=== PATIENT | male | born 1935 | race American Indian/Alaskan Native ===

== ENCOUNTER → 2018-01-14 14:01 | Outpatient (CLI) | payer MEDICARE, OTHER, SELFPAY ==
[2018-01-14 14:27] LABS: Add Manual Diff / Slide Review NO; Basophils Percent Auto 0.5 % (0-2); Eosinophils Percent Auto 2.6 % (2-4); Hematocrit 38.8 % (41-53); Hemoglobin 13.1 g/dL (13.5-17.5); Lymphocytes Percent Auto 21.1 % (25-40); Mean Corpuscular HGB Conc 33.7 % (30-36); Mean Corpuscular Hemoglobin 31.4 PG (26-34); Mean Corpuscular Volume 92.9 fL (80-100); Monocytes Percent Auto 11.1 % (3-14); Neutrophils Absolute Auto 3900 /uL (3000-5900); Neutrophils Percent Auto 64.7 % (50-75); Platelet Count 239 X10^3/uL (150-400); Red Blood Cell Count 4.17 X10^6/uL (4.5-5.9); Red Cell Distribution Width 14.5 % (11.6-14.8)
[2018-01-14 14:50] LABS: Alanine Aminotransferase 34 IU/L (21-72); Albumin 3.9 g/dL (3.5-5.0); Albumin Globulin Ratio 1.3 (1.0-2.8); Alkaline Phosphatase 80 U/L (38-126); Aspartate Aminotransferase 33 IU/L (17-59); Bilirubin Total 0.5 mg/dL (0.2-1.3); Blood Urea Nitrogen 24 mg/dL (9-20); Calcium 8.8 mg/dL (8.4-10.2); Carbon Dioxide 22 mmol/L (22-32); Chloride 106 mmol/L (98-107); Cholesterol 167 mg/dL (140-199); Estimated Glomerular Filt Rate 58.3 mL/min (>60); Globulin 3.1 g/dL (1.7-4.1); Glucose 125 mg/dL (80-110); HDL Cholesterol 69 mg/dL (40-60); HEMOLYSIS 15 (0-50); LDL Cholesterol Calculated 68 mg/dL (<100); Potassium 4.3 mmol/L (3.4-5.1); Sodium 140 mmol/L (137-145); Triglycerides 152 mg/dL (35-150); Uric Acid 8.1 mg/dL (3.5-8.5)
[2018-01-14 15:19] LABS: Thyroid Stimulating Hormone 1.62 uIU/mL (0.47-4.68)
== END ==
PROVIDERS: PCP Internal Medicine; Visit Provider Internal Medicine
DX: M10.9 Gout, unspecified (principal); I10 Essential (primary) hypertension; N18.3 Chronic kidney disease, stage 3 (moderate); E78.00 Pure hypercholesterolemia, unspecified
CPT/HCPCS: 36415; 80053; 80061; 84443; 84550; 85025

== ENCOUNTER → 2018-01-28 12:29 | Outpatient (CLI) | payer MEDICARE, OTHER, SELFPAY | PROVIDERS: PCP Internal Medicine; Visit Provider Urology | DX: R97.20 Elevated prostate specific antigen [PSA] (principal) | CPT/HCPCS: 36415; 84153 ==

== ENCOUNTER → 2018-09-09 10:43 | Outpatient (CLI) | payer MEDICARE, OTHER, SELFPAY ==
--- NOTE | 2018-09-09 | DI.RAD.S_ITS ---
PROCEDURE: XR HIP W PEL IF DONE LT 2V INDICATIONS: left hip pain TECHNIQUE: 3 views of the hip were acquired. COMPARISON: [facility], CR, [id number] W PEL IF PERFORMED, 12/17/2016, 13:23. [facility], CR, [id number] W PEL IF PERFORMED, 08/05/2016, 11:07. FINDINGS: Bones: No fractures or dislocations. Prior right total hip arthroplasty. Left hip degenerative osteoarthritic joint space thinning and reactive sclerosis and subchondral cyst formation has mildly worsened from the 12/17/16 comparison. No suspicious bony lesions. The visualized pelvic ring appears intact. Soft tissues: No suspicious soft tissue calcifications or masses. IMPRESSION: Mild interval worsening of previously present degenerative left hip joint osteoarthritis, now moderate to moderately severe. The right hip arthroplasty previously performed shows no sign of device loosening or disruption. Dictated by: Darwin Allen M.D. on 09/09/2018 at 11:25 Approved by: Darwin Allen M.D. on 09/09/2018 at 11:26
== END ==
PROVIDERS: PCP Internal Medicine; Visit Provider Registered Nurse
DX: M25.552 Pain in left hip (principal); M16.12 Unilateral primary osteoarthritis, left hip; Z96.641 Presence of right artificial hip joint
CPT/HCPCS: 73502

== ENCOUNTER → 2018-10-01 10:25 | Outpatient (CLI) | payer MEDICARE, OTHER, SELFPAY ==
[2018-10-01 10:40] LABS: RBC Urine None Seen (0-5/HPF)
[2018-10-01 11:12] LABS: Add Manual Diff / Slide Review NO; Basophils Absolute Auto 0 /uL (0-100); Basophils Percent Auto 0.5 % (0-2); Eosinophils Absolute Auto 200 /uL (0-450); Eosinophils Percent Auto 3.3 % (2-4); Hematocrit 40.2 % (41-53); Hemoglobin 13.4 g/dL (13.5-17.5); Lymphocytes Absolute Auto 1300 /uL (1100-4500); Lymphocytes Percent Auto 25.7 % (25-40); Mean Corpuscular HGB Conc 33.4 % (30-36); Mean Corpuscular Hemoglobin 30.9 PG (26-34); Mean Corpuscular Volume 92.4 fL (80-100); Monocytes Absolute Auto 500 /uL (0-900); Neutrophils Absolute Auto 3200 /uL (1500-7000); Neutrophils Percent Auto 60.5 % (50-75); Platelet Count 275 X10^3/uL (150-400); Red Blood Cell Count 4.35 X10^6/uL (4.5-5.9); Red Cell Distribution Width 14.6 % (11.6-14.8); White Blood Cell Count 5.2 X10^3/uL (4.5-11.0)
[2018-10-01 11:37] LABS: Hemoglobin A1C% w Est Avg Glu 5.6 % (4.0-6.0)
[2018-10-01 11:38] LABS: BUN Creatinine Ratio 19.4 (6-22); Blood Urea Nitrogen 33 mg/dL (9-20); Calcium 9.1 mg/dL (8.4-10.2); Carbon Dioxide 25 mmol/L (22-32); Chloride 104 mmol/L (98-107); Estimated Glomerular Filt Rate 38.9 mL/min (>60); Glucose 98 mg/dL (80-110); HEMOLYSIS < 15 (0-50); Potassium 4.3 mmol/L (3.4-5.1); Sodium 139 mmol/L (137-145)
[2018-10-01 12:16] LABS: Appearance Urine UA CLEAR; Bilirubin Urine UA NEGATIVE (NEGATIVE); Color Urine UA YELLOW; Glucose Urine UA NEGATIVE (Negative); Ketones Urine UA NEGATIVE (NEGATIVE); Leukocyte Esterase Urine UA TRACE (NEGATIVE); Nitrite Urine UA NEGATIVE (Negative); Occult Blood Urine UA TRACE-LYSED (Negative); Protein Urine UA 3+ (Negative); Specific Gravity Urine UA 1.025 (1.000-1.035); Urobilinogen Urine UA 0.2 E.U./dL (0.2); pH Urine UA 5.5 (4.5-8.0)
[2018-10-01 12:24] LABS: Amorphous Sediment Urine 2+; Bacteria Urine Occasional (0-1); Culture Indicated Urine Specimen Cultured; Hyaline Casts Urine 0-1/LPF; Mucus Urine 2+ (Negative); Squamous Epithelial Cell Urine 1-5 /HPF; WBC Urine 1-5/HPF (0-5/HPF)
== END ==
PROVIDERS: PCP Student in an Organized Health Care Education/Training Program; Visit Provider Orthopaedic Surgery
DX: Z01.818 Encounter for other preprocedural examination (principal); Z01.812 Encounter for preprocedural laboratory examination; N39.9 Disorder of urinary system, unspecified; R73.9 Hyperglycemia, unspecified; Z13.1 Encounter for screening for diabetes mellitus
CPT/HCPCS: 36415; 80048; 81001; 83036; 85025; 87086; 93005

== ENCOUNTER → 2018-11-04 10:20 | Outpatient (CLI) | payer MEDICARE, OTHER, SELFPAY ==
[2018-11-04 11:00] LABS: BUN Creatinine Ratio 14.7 (6-22); Blood Urea Nitrogen 25 mg/dL (9-20); Calcium 9.1 mg/dL (8.4-10.2); Carbon Dioxide 26 mmol/L (22-32); Chloride 104 mmol/L (98-107); Estimated Glomerular Filt Rate 38.9 mL/min (>60); Glucose 101 mg/dL (80-110); HEMOLYSIS < 15 (0-50); Potassium 4.7 mmol/L (3.4-5.1); Sodium 138 mmol/L (137-145)
== END ==
PROVIDERS: PCP Student in an Organized Health Care Education/Training Program; Visit Provider Registered Nurse
DX: N18.3 Chronic kidney disease, stage 3 (moderate) (principal); I12.9 Hypertensive chronic kidney disease with stage 1 through stage 4 chronic kidney disease, or unspecified chronic kidney disease
CPT/HCPCS: 36415; 80048

== ENCOUNTER → 2018-11-20 16:14 | Outpatient (CLI) | payer MEDICARE, OTHER, SELFPAY ==
[2018-11-20 16:25] LABS: RBC Urine None Seen (0-5/HPF)
[2018-11-20 16:35] LABS: Appearance Urine UA CLEAR; Bilirubin Urine UA NEGATIVE (NEGATIVE); Color Urine UA YELLOW; Glucose Urine UA NEGATIVE (Negative); Ketones Urine UA TRACE (NEGATIVE); Leukocyte Esterase Urine UA TRACE (NEGATIVE); Nitrite Urine UA NEGATIVE (Negative); Occult Blood Urine UA NEGATIVE (Negative); Protein Urine UA 3+ (Negative); Urobilinogen Urine UA 0.2 E.U./dL (0.2)
[2018-11-20 16:46] LABS: Amorphous Sediment Urine 1+; Bacteria Urine Occasional (0-1); Squamous Epithelial Cell Urine 1-5 /HPF; WBC Urine 1-5/HPF (0-5/HPF)
[2018-11-20 16:47] LABS: Culture Indicated Urine Specimen Cultured; Mucus Urine 1+ (Negative)
[2018-11-20 16:52] LABS: Hemoglobin A1C% w Est Avg Glu 5.4 % (4.0-6.0)
== END ==
PROVIDERS: PCP Student in an Organized Health Care Education/Training Program; Visit Provider Orthopaedic Surgery
DX: N39.0 Urinary tract infection, site not specified (principal); R73.9 Hyperglycemia, unspecified; Z01.818 Encounter for other preprocedural examination
CPT/HCPCS: 36415; 81001; 83036; 87086

== ENCOUNTER 2018-12-08 09:02 | Inpatient (IN) | payer MEDICARE, OTHER, SELFPAY ==
[2018-11-26 08:53] VITALS: BMI 27.6
[2018-12-08] VITALS (14 sets, daily range): BP systolic 105–163; BP diastolic 46–82; PULSE 54–73; RESP 15–20; TEMP 36.1–37.1; O2SAT 96–99; BMI 28.8
--- NOTE | 2018-12-08 | DI.RAD.S_ITS ---
PROCEDURE: XR HIP W PEL IF DONE LT 2V INDICATIONS: POST OP LEFT TOTAL HIP TECHNIQUE: 2 view(s) of the hip acquired. COMPARISON: [facility], CR, XR PELVIS WITH BILATERAL LATERAL HIPS, 11/26/2018, 14:46. [facility], CR, XR PELVIS 1-2V, 12/08/2018, 12:46. [facility], CR, XR HIP W PEL IF DONE LT 2V, 09/09/2018, 10:59. FINDINGS: Bones: Patient is status post left hip arthroplasty, with hardware components in expected positions. The hip joint appears congruent. The visualized bony structures appear intact. Note is made of a right hip prosthesis. Soft tissues: Overlying postoperative changes are noted. No suspicious soft tissue densities. IMPRESSION: Left hip arthroplasty with prosthesis in anatomic alignment. Dictated by: Lucy Reynolds M.D. on 12/08/2018 at 16:01 Approved by: Lucy Reynolds M.D. on 12/08/2018 at 16:02
--- NOTE | 2018-12-08 06:00 | DI.RAD.S_ITS ---
PROCEDURE: XR PELVIS 1-2V INDICATIONS: JAMES TECHNIQUE: Intra-operative view of the pelvis and hip acquired. COMPARISON: None. FINDINGS: Bones: Intraoperative devices prior to placement of arthroplasty prostheses are in expected positions. No fractures or suspicious bony lesions. Soft tissues: Overlying surgical retractors are present, along with other intraoperative changes. IMPRESSION: Left hip arthroplasty. Dictated by: Lucy Reynolds M.D. on 12/08/2018 at 13:52 Approved by: Lucy Reynolds M.D. on 12/08/2018 at 13:52
[2018-12-08] MEDS: PREGABALIN 75 MG CAPSULE PO (09:21)
[2018-12-08] MEDS: ACETAMINOPHEN 325 MG TABLET 975 MG PO ×3 (09:21→20:34)
[2018-12-08] MEDS: LACTATED RINGERS 1,000 ML 42 ML IV (09:21)
[2018-12-08] MEDS: CELECOXIB 200 MG CAPSULE PO (09:21)
--- NOTE | 2018-12-08 10:27 | PM.PREOP ---
Pre-operative Note Interval Note History & Physical reviewed/Exam performed by Physician: Yes Changes to H&P: No
--- NOTE | 2018-12-08 10:29 | P.OP_ITS ---
Operative Date/Time/Diagnoses Date of procedure: 12/08/18 Time of procedure: 10:56 Pre-op diagnosis: left hip OA Post-op diagnosis: same Procedure & Clinicians Procedure: left total hip arthroplasty Same procedure as scheduled: Yes Indications: The patient has had progressively worsening left hip pain with radiographic changes consistent with arthritis. Non-operative management has failed and the patient has requested total hip replacement. The risks, benefits and alternatives to surgery were discussed with the patient prior to proceeding. Risks discussed included, but were not limited to, failure to relieve pain, leg length discrepancy, dislocation, stiffness, infection, nerve damage, deep venous thrombosis, pulmonary embolism, stroke, coma, heart attack, permanent paralysis and , as well as the potential need for eventual revision of the prosthetic. Surgeon: Carin Martin Nuclear Spectroscopist: Melba Alcantara Anesthesia Type: Spinal and Sedation Operative Notes Findings: adequate bone, good stability Closure Type: primary Specimen(s): none sent Prosthetic devices, grafts, tissues, transplants, or devices: [employer] R3 56 cup, size 10 anthology stem standard offset, +4 by 36 head Applied: drain(s) Estimated Blood Loss (mL): 250 Blood products transfused: none Procedure in detail: The patient was seen in the pre-operative area, where the patient identified the left hip as the operative site and this was marked with my initials. The patient received pre-operative antibiotics and was taken to the operating room and placed on the operative table in the right lateral decubitus position after satisfactory anesthesia. A computer numeric control setter out was performed. The left leg was prepared from the ankle to the iliac crest with ChloroPrep in the usual fashion and draped through sterile drapes. The hip was approached through an approximately 20 cm incision centered over the greater trochanter and curving gently posteriorly as it went proximally. This was carried sharply to the fascia soren, which was divided and retracted with a self retaining retractor. The trochanteric bursa was excised with care being taken to avoid the sciatic nerve, which was identified and protected throughout the case. The short external rotators were incised and the capsulomuscular flap was raised and tagged for later repair. The hip was dislocated, and a femoral neck osteotomy performed approximately 15 mm above the lesser trochanter. Retractors were placed around the femur. The canal was opened with a box cutting osteotome, followed by a T handled reamer and a lateralizing reamer. The chili pepper broach was then used, followed by sequential broaching until there was good stability of the broach in the femur. Retractors were placed to expose the acetabulum. The labrum and central soft tissues were removed. Reaming was performed initially going up in 2 mm increments, then 1 mm increments until good bite was obtained with an odd sized reamer. The cup 1 mm larger than the last reamer was then inserted using the appropriate anteversion guides. A trial neutral liner was placed. The broach was placed in the canal. A trial head and neck were then placed and the hip relocated and checked for leg length and stability. An intraoperative film confirmed the component position and no evidence of fracture. The patient was stable in the position of sleep, of squatting, and could be put through a range of motion with 45 degrees internal rotation without dislocation. At 90 degrees flexion, internal rotation to 70 was possible before dislocation. This was felt to be satisfactory and the appropriate components were opened, and the trials were removed. The acetabular liner was impacted into position. The final stem was then impacted into the prepared femoral canal. A brief Betadine soak was performed while trialing with head options. The hip was meticulously irrigated with normal saline. Finally the femoral head was impacted onto the stem. The acetabulum was cleared of all material and the hip relocated one final time. The capsulomuscular flap was then repaired to the greater trochanter though an awl hole using the tag sutures. The short external rotators were repaired with a nonabsorbable poly suture. A deep drain was placed and brought out anteriorly. The fascia soren was closed with vicryl. The subcutaneous layer was closed with barbed sutures and SteriStrips. An Aquacel Ag dressing was applied and the patient was taken to recovery having tolerated the procedure well. Complications: none Condition: stable Disposition: Acute Care Plan for aftercare: The patient will be maintained on a standard total hip replacement protocol with weight bearing as tolerated and posterior hip precautions. The patient will receive Aspirin and sequential compression devices for DVT prophylaxis. The patient will be discharged home when safe for the home environment.
[2018-12-08] MEDS: VANCOMYCIN 1,000 MG/200 ML FROZ.PIGGY 200 MG IV (10:30)
[2018-12-08] MEDS: CEFAZOLIN 2 GM/100 ML FROZ.PIGGY IV ×2 (11:45→20:32)
--- NOTE | 2018-12-08 12:08 | SUR.OPER ---
Lateral on padded OR bed. Gel axillary roll. Arms secured on padded armboard with pillow supporting top arm. Padded hip positioner braces x4 - anterior and posterior chest and pelvis. Additional gel pad used anterior pelvis. Gel pad under bottom leg from knee to foot and secured with tape over sheet.
[2018-12-08] MEDS: SODIUM CHLORIDE 0.9% 1,000 ML 84 ML IV ×2 (12:11→13:30)
[2018-12-08] MEDS: BUPIVACAINE 0.25% W/ EPI 30 ML VIAL 60 ML INJ (12:15)
[2018-12-08] MEDS: SODIUM CHLORIDE IRRIG SOLUTION 250 ML, EPINEPHrine 1 MG IRR (12:16)
[2018-12-08] MEDS: BUPIVACAINE LIPOSOME 266 MG/20 ML VIAL INJ (12:17)
[2018-12-08] MEDS: TRANEXAMIC ACID 1,000 MG VIAL 1000 MG INJ ×2 (12:18→13:10)
[2018-12-08] MEDS: POVIDONE-IODINE 15 ML, SODIUM CHLORIDE 0.9% 250 ML TOP (12:18)
--- NOTE | 2018-12-08 12:32 | SUR.OPER ---
GLASSES TO PACU IN LABELED BAG.
[2018-12-08] MEDS: fentaNYL 100 MCG/2 ML INJ IV ×2 (14:00→14:10)
[2018-12-08] MEDS: hydrOXYzine 50 MG/ML INJ 25 MG IM (14:15)
--- NOTE | 2018-12-08 15:08 | PC.NURSE ---
PT RECEIVED FROM PACU, VSS, AFEBRILE- S/O PAIN TO LEFT HIP- MEDICATED WITH PO OXYCODONE AND TYLENOL. IVF STARTED PER MD ORDER- AT BEDSIDE.
[2018-12-08] MEDS: LACTATED RINGERS 1,000 ML 125 ML IV ×2 (15:25→23:12)
[2018-12-08] MEDS: OXYCODONE IR 5 MG TABLET PO ×2 (15:25→20:33)
--- NOTE | 2018-12-08 16:45 | PT.IIE ---
Current Diagnoses Unilateral primary osteoarthritis, left hip (12/08/18) Surgery Performed Operation Date: 12/08/18 10:45 Actual Procedures p Total Hip Arthroplasty(Left) - Carin Martin MD Surgical History (Last Updated 11/26/18 @ 09:28 by Eladia Celeste, RN) History of lumbar spinal fusion (Acute) History of hip replacement (12/17/16) Status post cholecystectomy Status post colonoscopy Medical History (Last Updated 11/26/18 @ 09:28 by Eladia Celeste RN) Cellulitis (Acute ~09/2016) Enlarged prostate (Acute) Former smoker (Acute) HLD (hyperlipidemia) (Acute) HTN (hypertension) (Acute) Kidney failure (Acute ~2010) MRSA (methicillin resistant Staphylococcus aureus) (Acute ~2005) Osteomyelitis (Acute ~2012) Pancreatitis (Acute ~2010) Physical Therapy Inpatient Evaluation/Re-Eval M1 PT/OT-IP Prior Functional Status Start: 12/08/18 16:28 Freq: NEEDED Status: Active Protocol: Document 12/08/18 16:45 AB (Rec: 12/08/18 17:53 AB [id number]) Medical Review Prior Functional Status Medical History Reviewed Yes Communication able to make needs known Mobility and Gait pt stated that he is mod I with all mobilities and ambulation without AD but occasionally uses SPC for outdoor mobility Social History Household Members spouse Living Arrangements House Number of Floors (Floors) 3 or More Floors Number of Stairs To Enter/Railing? 8 steps with L rail ascending to enter 8 steps with L rail descending to down to bedroom level has 3 steps without rails down to living room/dining room area Home Environment Standard Height Toilet Walk in Shower Home Equipment Front Wheel Walker Straight Cane Raised Toilet Seat w/Armrests Shower Seat with Backrest Hand Held Shower Grab Bars In Shower Employment Status Retired M2 PT-IP Current Condition Start: 12/08/18 16:28 Freq: NEEDED Status: Active Protocol: Document 12/08/18 16:45 AB (Rec: 12/08/18 17:53 AB [id number]) Physical Therapy Current Condition Current Condition Evaluation Date 12/08/18 Treatment Diagnosis s/p L JAMES posterior approach; difficulty in walking Onset Date 12/08/18 Precautions Posterior Hip Precautions No Hip Flexion > 90 degrees No Hip Internal Rotation No Hip Adduction Weight Bearing Status Weight Bearing Status Weight Bear as Tolerated M3 PT-IP Subjective Start: 12/08/18 16:28 Freq: NEEDED Status: Active Protocol: Document 12/08/18 16:45 AB (Rec: 12/08/18 17:53 AB [id number]) Subjective Physical Therapy Visit Type Type Initial Evaluation Visit Start Time 16:45 Visit Stop Time 17:35 Total Visit Minutes 50 Number of CITY DISPATCH SUPERVISOR Visits 0 Physical Therapy Visit Comments Patient Comments pt agreed to do PT Therapy Pain Assessment Pain When Pain Assessed At Rest Pain Present Pain Present Pain Reported Location Left Hip Intensity 4 Scale Used Numeric (1 - 10) Pain Management Techniques Re-positioning Timing of Activity with Medications M4 PT-IP Mobility and Gait Start: 12/08/18 16:28 Freq: NEEDED Status: Active Protocol: Document 12/08/18 16:45 AB (Rec: 12/08/18 17:53 AB [id number]) PT-Bed Mobility Assessment Supine to Sit Supine to Sit Minimal Assistance Sit to Supine Sit to Supine Minimal Assistance Scooting Scooting to Edge of Bed Minimal Assistance PT-Transfer Assessment Sit to and From Stand Sit to and from Stand Moderate Assistance 1 Person Assistance Use of Upper Extremities Equipment Transfer Assistive Device Gait Belt Front Wheeled Walker Orthotic/Prosthetic Devices or Brace: No Comments Mobility Comments pt tends to have internally rotate LLE during sit <>stand requiring assist to correct and stabilize. cues provided. Gait Assessment Gait Gait Assistance Required: Moderate Assistance 1 Person Assist Distance (Feet) 2 Able to Maintain Weight Bearing Status Yes During Gait Assistive Devices Assistive Device Gait Belt Front Wheeled Walker Orthotic/Prosthetic Devices or Brace: No Gait Deviations General Gait Pattern Antalgic Decreased Stride Length Decreased Feet Clearance Factors Limiting Gait Function Factors Limiting Gait Function Decreased Activity Tolerance Decreased Sensation Decreased Strength Difficulty Following Directions Limited Range of Motion Pain Poor Balance Poor Safety Awareness Comments Gait Comments attempted ambulation but pt stated that LLE feels heavy and still has decrease sensation. instructed to do marching in place using FWW and pt completed requiring mod A and cues. pt then was able to take side steps using FWW towards HOB mod A and cues. PT-Balance Assessment Sitting Balance and Reactions Static Sitting Balance Ability Good Dynamic Sitting Balance Ability Good Standing Balance and Reactions Static Standing Balance Ability Fair Dynamic Standing Balance Ability Poor Device Used FWW M5 PT-IP Objective Assessments Start: 12/08/18 16:28 Freq: NEEDED Status: Active Protocol: Document 12/08/18 16:45 AB (Rec: 12/08/18 17:53 AB [id number]) Orientation Orientation/Cognition Level of Alertness Alert Orientation Name Age Place Situation Language Function Ability Hard of Hearing Safety Awareness Decreased Safety Awareness Memory Description Short Term Impaired Gross Range of Motion Lower Extremity ROM Assessment Left Impaired Strength Lower Extremity Strength Assessment Left Impaired Knee 3+/5 Sensation Assessment Sensation Gross Sensation Left LE Impaired Proprioception (Position) Impaired Muscle Tone Muscle Tone WNL Yes M6 PT-IP Treatment Start: 12/08/18 16:28 Freq: NEEDED Status: Active Protocol: Document 12/08/18 16:45 AB (Rec: 12/08/18 17:53 AB [id number]) Physical Therapy Treatment Exercises Exercises Heel Slides Education Education Provided Precautions Weight Bearing Status Post-Op Packet Safety M7 PT-IP Assessment and Plan Start: 12/08/18 16:28 Freq: NEEDED Status: Active Protocol: Document 12/08/18 16:45 AB (Rec: 12/08/18 17:53 AB [id number]) PT Summary Assessment and Plan Potential Rehabilitation Potential Good Status of Condition at Evaluation Evolving Summary Impairments Pain ROM Strength Balance Coordination Sensation Tone Cognition Bed Mobility Transfers Gait Activity Tolerance Assessment Summary pt requiring mod A with mobility and spouse stated that she can assist pt but she cannot provide much physical assistance. d/c plan depending on progress. will continue to assess. pt stated that he is set up for outpt PT already . Goals Bed Mobility Goal Standby Assistance Transfer Goal Standby Assistance Front Wheeled Walker Gait Goal Standby Assistance Front Wheel Walker Gait Distance 200 Other Goals up/down 8 steps L rail asending/ R rail ascending SBA ; up/down 3 steps using SPC SBA Frequency of Treatment Frequency Of Treatment Twice a Day Treatment Plan Physical Therapy Treatment Plan Bed Mobility Training Transfer Training Gait Training Therapeutic Exercise Balance Retraining Post Op Education Discharge Planning Hot or Cold Pack Neuromuscular Re-ed Coordination Retraining Manual Therapy Other Recommendations and Next Treatment ambulation, stair climbing Focus Recommendations To Nursing Amount of Assist Needed 1 Person Assist Discharge Recommendations PT Discharge Recommendations Home with Assistance SNF Rehab Outpatient PT Other Discharge Recommendations depending on progress: SNF vs home with assist and outpt PT
[2018-12-08] MEDS: ASPIRIN EC 81 MG TABLET PO (20:35)
[2018-12-08] MEDS: ALLOPURINOL 300 MG TABLET PO (20:35)
[2018-12-08] MEDS: DOCUSATE 100 MG CAPSULE PO (20:35)
[2018-12-08] MEDS: AMLODIPINE 5 MG TABLET 10 MG PO (20:35)
[2018-12-08] MEDS: LOSARTAN 25 MG TABLET PO (20:35)
[2018-12-08] MEDS: SIMVASTATIN 20 MG TABLET PO (20:36)
[2018-12-09] VITALS: BP 149/71; PULSE 61; RESP 16; TEMP 36.7; O2SAT 99
[2018-12-09] MEDS: OXYCODONE IR 5 MG TABLET PO ×3 (00:05→08:58)
[2018-12-09] MEDS: CEFAZOLIN 2 GM/100 ML FROZ.PIGGY IV (04:12)
[2018-12-09 04:16] VITALS: BP 129/56; PULSE 63; RESP 16; TEMP 36.7; O2SAT 98
[2018-12-09 05:26] LABS: Hematocrit 30.9 % (41-53); Hemoglobin 10.5 g/dL (13.5-17.5)
[2018-12-09] MEDS: TRAMADOL 50 MG TABLET PO (06:19)
[2018-12-09] MEDS: ACETAMINOPHEN 325 MG TABLET 975 MG PO (06:20)
[2018-12-09 07:23] VITALS: BP 126/63; PULSE 57; RESP 18; TEMP 36.9; O2SAT 98
--- NOTE | 2018-12-09 07:33 | P.DS_ITS ---
History of Present Illness Date Patient Seen: 12/09/18 Time Patient Seen: 07:28 Chief complaint: [id number] Narrative: Pain is moderate this am. Had more severe pain last night. No N/V. Denies fever or chills. home to assist him. Has hx of right JAMES. Discharge Providers Date of admission: 12/08/18 09:02 Discharge Date: 12/09/18 Primary care physician: Chaz Bryant MD Consults: 11/26/18 09:40 Consult to Anesthesiology Routine Comment: Consulting Provider: Anesthesiologist Reason for consultation: PAC Courtesy re: Abnormal labs 12/08/18 06:00 Consult to Anesthesiology Routine Comment: Consulting Provider: Anesthesiologist Reason for consultation: Regional block for post operative pain control 12/08/18 13:55 Consult to Respiratory Therapy Evaluate & Treat Comment: Physician Instructions: Evaluate and treat 12/08/18 14:44 Consult to Discharge Planning Routine Comment: Consult to Physical Therapy Evaluate & Treat Comment: Physician Instructions: post op JAMES protocol Consult to Respiratory Therapy Evaluate & Treat Comment: Physician Instructions: Evaluate and treat Discharge provider: Rogelio Brown PA-C Summary Discharge Diagnosis: status post left JAMES Hospital Course: Procedure: left total hip arthroplasty Same procedure as scheduled: Yes Indications: The patient has had progressively worsening left hip pain with radiographic changes consistent with arthritis. Non-operative management has failed and the patient has requested total hip replacement. The risks, benefits and alternatives to surgery were discussed with the patient prior to proceeding. Risks discussed included, but were not limited to, failure to relieve pain, leg length discrepancy, dislocation, stiffness, infection, nerve damage, deep venous thrombosis, pulmonary embolism, stroke, coma, heart attack, permanent paralysis and , as well as the potential need for eventual revision of the prosthetic. Surgeon: Carin Martin Underwear Cutter: Melba Alcantara Anesthesia Type: Spinal and Sedation Operative Notes Findings: adequate bone, good stability Closure Type: primary Specimen(s): none sent Prosthetic devices, grafts, tissues, transplants, or devices: [employer] R3 56 cup, size 10 anthology stem standard offset, +4 by 36 head Applied: drain(s) Estimated Blood Loss (mL): 250 Blood products transfused: none Patient admitted for left JAMES. Taken to OR after consent obtained. Patient had left JAMES without complication. Stable after surgery. Status at Discharge Cognitive/behavioral status at discharge: at baseline, oriented Functional status at discharge: uses cane/walker Overall status at discharge: patient is progressing back to baseline Time Spent with Patient Less than 30 minutes Exam Vital Signs (past 8 hours): - 12/09/18 00:00 12/09/18 04:16 12/09/18 07:23 Temperature 98.1 F 98.0 F 98.4 F Pulse Rate 61 63 57 L Respiratory Rate 16 16 18 Blood Pressure 149/71 H 129/56 L 126/63 Pulse Oximetry 99 98 98 Oxygen Delivery Method Room Air Narrative Exam Narrative: Resting comfortably in bed. Left hip dressing is CDI. Motor function intact left distal LE. Sensation grossly intact. Left leg is warm and dry. Objective Labs Result Diagrams: 12/09/18 04:43 Labs: Laboratory Results - last 24 hr 12/08/18 12/09/18 14:40 04:43 Hgb 10.5 L Hct 30.9 L Nasal Screen MRSA (PCR) Negative for mrsa Discharge Plan Discharge Plan Patient Disposition: Home Discharge comment: DC home today after PT Discharge Med Rec/Prescriptions Prescriptions: Continued cetirizine 10 MG tablet 10 mg PO BEDTIME Qty: 0 RF: 0 triamcinolone acetonide 0.1 % cream See Rx Instructions Topical QDAYP Qty: 80 RF: 5 simvastatin [Zocor] 20 mg tablet 20 mg PO HS Qty: 90 RF: 3 multivitamin 1 tab PO DAILY RF: 0 amlodipine 10 mg tablet 10 mg PO BEDTIME RF: 0 losartan 25 mg tablet 25 mg PO BEDTIME RF: 0 allopurinol 300 mg tablet 300 mg PO BEDTIME RF: 0 Discontinued diphenhydramine-acetaminophen [Tylenol PM Extra Strength] 500 MG/25 MG tablet 1 tab PO BEDTIME PRN (Reason: Sleep) Qty: 0 RF: 0 aspirin 81 MG tablet,delayed release (DR/EC) 81 mg PO BEDTIME RF: 0 tramadol 50 mg tablet 50 mg PO DAILY PRN (Reason: pain) RF: 0 Follow up/Referrals: Chaz Bryant MD [Primary Care Provider] - Provider Discharge Instructions Diet: Diet as Tolerated Activity: WBAT, posterior hip precautions Cold/Heat Therapy: apply ice as needed Other treatments: ASA bid, Tylenol 1000 mg q8H, Mobic 1 tab PO daily, oxycodone prn pain Skin/Wound/Dressing Care Report to your healthcare provider any signs of infection, such as:: chills, fe smith, increased pain, unusual drainage and unusual redness Dressing: keep clean and dry Discharge Data Primary Care Provider: Chaz Bryant Attending Provider: Carin Martin Admit Date/Time: 12/08/18 09:02 Quality VTE Deep Vein Thrombosis/Pulmonary Embolism Present on Admission: No
[2018-12-09] MEDS: ASPIRIN EC 81 MG TABLET PO (08:59)
[2018-12-09] MEDS: DOCUSATE 100 MG CAPSULE PO (08:59)
--- NOTE | 2018-12-09 09:52 | CM.DANOTE ---
Patient is an 83 year old male who was admitted on 12/08/18 for surgery. Pt has [facility] and [facility] for insurance and his PCP is Dr. Chaz Bryant. EMR was reviewed. Per Ortho PA, pt tolerated procedure well and stable for d/c home today pending further PT. Per PT, pt improved enough to safely d/c home with spouse. SW met bedside with pt and explained role and pt confirms that he lives at home in [place] with his spouse and they are mostly independent with ADL's and drives and has DME equipment at home from previous hip surgery. Pt confirms that after last surgery he needed [facility] SN[facility] rehab and HH but states he is tolerating this surgery significantly better and is comfortable with plan of d/c home with spouse available to provide some assist. Pt has called his spouse and alerted her that he will likely d/c home today and she will be bedside shortly and can provide transport at d/c. Plan: SW to follow for likely d/c home via spouse POV today and already has outpt PT set up. EVELYN Myers Discharge Planning/Care Management CM Discharge Assessment Start: 12/09/18 08:58 Freq: Status: Active Protocol: Document 12/09/18 08:58 BF (Rec: 12/09/18 09:52 BF [id number]) Discharge Planning Assessment Assigned [employer] Commerce Consultant EVELYN Smith DPOA/Assigned Designee Name spouse Advance Directives? No: Declines further information Advance Directives on File Yes History Provided By Patient Medical Record Has Patient been admitted in last 30 No days? Prior Living Arrangements House Household Members spouse Type of transporation used prior to Drives own vehicle admit Independent with ADL's Yes Is patient alert and oriented? Yes Needs Assistance With Home Chores / Shopping Caregiver for Another No DME Already Rented / Owned Bath Bench Elevated Toilet Seat Cane Patient/Family Preference OP PT Therapy Comment Likely home with spouse and outpt PT Barriers to Discharge No Discharge Plan Home Community Services Physical Therapy Transportation Arrangement Likely spouse can provide transport and will be bedside soon Referrals Initiated None needed Whiteboard Updated in Patient Room with Yes name and ext. # of [employer] Commerce Consultant Review Status In Process Please Provide Date Initial DC 12/09/18 Assessment Was Performed Next Review Type Continued Stay Review Pre-Anesthesia Assessment Start: 11/26/18 08:53 Freq: Status: Complete Protocol: Document 11/26/18 08:53 [facility] (Rec: 11/26/18 09:40 [facility] [id number]) Pre-Anesthesia Assessment PAC Comment Pt seem preoccupied during phone assessment, required repeated instructions, answers to questions didn't always match question asked Patient Also Known As Ricci (AKA) Patient Information Reviewed Via Phone Assessment Assessment Completed With Patient Primary Care Provider Chaz Bryant Seen Specialist in Last 12 Months Yes Specialist Seen Opthamologist/Obgyn Hospitalist Physician Primary Language Lao Director Of Accounting Required No Height 180.34 cm Weight 89.811 kg Body Mass Index (BMI) 27.6 Hearing Ability Normal Hard of Hearing Use of Hearing Aid Visual Assist Glasses Dentition Type Teeth, Natural Present Hx Anesthesia Reactions No Hx Family Anesthesia Reaction No Hx Malignant Hyperthermia No Hx Blood Transfusions No Anesthesia Review Requested Yes: PAC Courtesy re: Abnormal labs Information Security Engineer No alcohol intake current alcohol intake frequency a few times a week Smoking Status Former smoker how long ago did patient quit smoking Quit 1960 Substance Use Type does not use Pain Present Pain Reported Musculoskeletal Symptoms Abnormal Gait Difficulty Walking Joint Pain History of Falling (Recent or History of No ) Patient is completely paralyzed or No completely immobile Mental Status Oriented to own ability Is patient on oxygen? No Does patient have BATISTA/SOB No Hx Sleep Apnea No Currently Taking a Beta Tere No Can You Climb a Flight of Stairs Without Yes SOB Hx Chest Pain No Hx SOB No Hx Syncope or Dizziness No Anti-Coagulant Therapy No Has a Carpenter Railcar No Cardiac Testing No Hx Pacemaker/ICD No Pacemaker Rep Required? No Cardiac Clearance Received Not Applicable Diet Type At Home Regular dysphagia No Genitourinary Symptoms Dribbling Urinary Catheter Present No Hx Urinary Self Catheterization No Diabetes No HgbA1C 5.4 Date 11/20/18 Hx Drug Resistant Organism Yes: MRSA+ Pneumonia 2005 Presence of External or Internal Medical Yes: Right hip prosthesis Devices Have you traveled outside the [facility] in the last 30 days? Marital Status Lives With spouse Prior Living Arrangements House Number of Floors (Floors) Two Floors Support System Child/Children Spouse Does the Patient Have Assistance After Yes Surgery Patient Discharge Plan Description Return Home Comment Pt advised 1-2 day length of stay per surgeon's office Feels Safe in Current Environment Yes Been Physically Hurt or Threatened By a No Person in Current Environment Do you have thoughts of harming yourself None or others? Are you currently considering suicide? No Do you have a plan to hurt yourself or No Plan others? Do You Have Any Spiritual Beliefs That No May Affect Your HC Choices? Do You Have Any Cultural Practices That No May Affect Your HC Choices? Comment Zoroastrian Who Can We Speak to About Patient's Care Family, friends Identifying Code for Release of Patient Declines to issue Information Health Care Proxy/Next of Kin Padmini () Health Care Proxy Emergency Contact Name Padmini () Emergency Contact Advance Directives? No: Declines further information PAC Instructions Durable medical equipment Medications to take/avoid Nasal antibiotic No ETOH/petroleum product on skin DOS NPO Post-op transportation Pre-surgical wash Sturdy shoes/comfortable clothes Do not bring valuables and remove jewelry
--- NOTE | 2018-12-09 11:22 | PT.IPTN ---
Current Diagnoses Unilateral primary osteoarthritis, left hip (12/08/18) Surgery Performed Operation Date: 12/08/18 10:45 Actual Procedures p Total Hip Arthroplasty(Left) - Carin Martin MD Physical Therapy Treatment Note M2 PT-IP Current Condition Start: 12/08/18 16:28 Freq: NEEDED Status: Active Protocol: Document 12/08/18 16:45 AB (Rec: 12/08/18 17:53 AB [id number]) Physical Therapy Current Condition Current Condition Evaluation Date 12/08/18 Treatment Diagnosis s/p L JAMES posterior approach; difficulty in walking Onset Date 12/08/18 Precautions Posterior Hip Precautions No Hip Flexion > 90 degrees No Hip Internal Rotation No Hip Adduction Weight Bearing Status Weight Bearing Status Weight Bear as Tolerated M3 PT-IP Subjective Start: 12/08/18 16:28 Freq: NEEDED Status: Active Protocol: Document 12/09/18 11:11 SA (Rec: 12/09/18 11:22 SA [id number]) Subjective Physical Therapy Visit Type Type Treatment Note Visit Start Time 09:45 Visit Stop Time 10:17 Total Visit Minutes 32 Notes Pt in bed, agreeable to PT this AM. Number of BEARINGIZER Visits 1 Physical Therapy Visit Comments Patient Comments Rates pain as about a 4/10, eager to go home. Patient Goals Home with . Therapy Pain Assessment Pain When Pain Assessed During Mobility Pain Present Pain Present Pain Reported Location Left Hip Intensity 4 Scale Used Numeric (1 - 10) Pain Management Techniques Re-positioning Timing of Activity with Medications M4 PT-IP Mobility and Gait Start: 12/08/18 16:28 Freq: NEEDED Status: Active Protocol: Document 12/09/18 11:11 SA (Rec: 12/09/18 11:22 SA [id number]) PT-Bed Mobility Assessment Rolling Type of Rolling Roll to Right Level of Assist Standby Assistance Supine to Sit Supine to Sit Contact Guard Assistance Sit to Supine Sit to Supine Contact Guard Assistance Scooting Scooting to Edge of Bed Standby Assistance Scooting Up and Down in Bed Standby Assistance PT-Transfer Assessment Sit to and From Stand Sit to and from Stand Contact Guard Assistance 1 Person Assistance Equipment Transfer Assistive Device Gait Belt Front Wheeled Walker Orthotic/Prosthetic Devices or Brace: No Transfers Transfer Destination Bed Wheelchair Transfer Technique Stand Step Pivot Transfer Ability Level of Assist Contact Guard Assistance Comments Mobility Comments Pt with CGA with most mobilities and understands hip preacutions, verbal and visual review. Able to get in/ out of bed on R side which is what he does at home. Gait Assessment Gait Gait Assistance Required: Contact Guard Assist 1 Person Assist Distance (Feet) 120 Able to Maintain Weight Bearing Status Yes During Gait Assistive Devices Assistive Device Gait Belt Front Wheeled Walker Orthotic/Prosthetic Devices or Brace: No Gait Deviations General Gait Pattern Antalgic Decreased Stride Length Decreased Feet Clearance Factors Limiting Gait Function Factors Limiting Gait Function Decreased Activity Tolerance Decreased Strength Limited Range of Motion Pain Comments Gait Comments Gait training in halls with FWW and CGA for 10 + 10 + 100 feet with gradual increase in stride length and LLE WBing. Stair Climbing Assessment Evaluation Level of Assist On Stairs Contact Guard Assistance Devices Stair Climbing Assistive Devices Left Railing Right Railing Technique/Endurance Stair Climbing Direction Ascend and Descend Stair Climbing Technique Step to Step Number of Steps Climbed 3 Query Text: Stair Climbing Set # Repetitions (reps) 3 Comments Stair Climbing Comments Step to gait pattern with CGA and use of B rails, Mod cues for safe technique, completed 3x in a row for 9 stairs completed. PT-Balance Assessment Sitting Balance and Reactions Static Sitting Balance Ability Good Dynamic Sitting Balance Ability Good M5 PT-IP Objective Assessments Start: 12/08/18 16:28 Freq: NEEDED Status: Active Protocol: Document 12/08/18 16:45 AB (Rec: 12/08/18 17:53 AB [id number]) Orientation Orientation/Cognition Level of Alertness Alert Orientation Name Age Place Situation Language Function Ability Hard of Hearing Safety Awareness Decreased Safety Awareness Memory Description Short Term Impaired Gross Range of Motion Lower Extremity ROM Assessment Left Impaired Strength Lower Extremity Strength Assessment Left Impaired Knee 3+/5 Sensation Assessment Sensation Gross Sensation Left LE Impaired Proprioception (Position) Impaired Muscle Tone Muscle Tone WNL Yes M6 PT-IP Treatment Start: 12/08/18 16:28 Freq: NEEDED Status: Active Protocol: Document 12/09/18 11:11 SA (Rec: 12/09/18 11:22 SA [id number]) Physical Therapy Treatment Exercises Exercises Ankle Pumps Gluteal Sets Heel Slides Education Education Provided Precautions Weight Bearing Status Post-Op Packet Safety M7 PT-IP Assessment and Plan Start: 12/08/18 16:28 Freq: NEEDED Status: Active Protocol: Document 12/09/18 11:11 (Rec: 12/09/18 11:22 [id number]) PT Summary Assessment and Plan Potential Rehabilitation Potential Good Status of Condition at Evaluation Evolving Summary Impairments Pain ROM Strength Balance Coordination Sensation Tone Cognition Bed Mobility Transfers Gait Activity Tolerance Assessment Summary Pt safe with ambulation with FWW and stairs with B rails or single rail with 1 person to assist, present at home for caregiving, pt has all equipment needs. Frequency of Treatment Frequency Of Treatment Twice a Day Treatment Plan Physical Therapy Treatment Plan Bed Mobility Training Transfer Training Gait Training Therapeutic Exercise Balance Retraining Post Op Education Discharge Planning Hot or Cold Pack Neuromuscular Re-ed Coordination Retraining Manual Therapy Recommendations To Nursing Amount of Assist Needed 1 Person Assist Discharge Recommendations PT Discharge Recommendations Home with Assistance Outpatient PT
== END 2018-12-09 11:36 | disposition home or self-care (01) | DRG 470 ==
LOC: AC 09:24 → ICU 10:55
PROVIDERS: Admitting Provider Orthopaedic Surgery; PCP Student in an Organized Health Care Education/Training Program; Visit Provider Orthopaedic Surgery
PROC: 0SRB0JZ Replacement of Left Hip Joint with Synthetic Substitute, Open Approach (ICD-10-PCS; CPT 27130; principal; 2018-12-08 10:45)
DX: M16.12 Unilateral primary osteoarthritis, left hip (principal); N18.3 Chronic kidney disease, stage 3 (moderate); E78.5 Hyperlipidemia, unspecified; M10.9 Gout, unspecified; Z96.641 Presence of right artificial hip joint; I12.9 Hypertensive chronic kidney disease with stage 1 through stage 4 chronic kidney disease, or unspecified chronic kidney disease; Z87.891 Personal history of nicotine dependence
CPT/HCPCS: 36415; 72170; 73502; 85014; 85018; 87797; 97116; 97162; 97530; C1776; C9290; J0171; J0690; J1100; J2250; J2405; J2704; J3010; J3370; J3410

== ENCOUNTER → 2019-03-02 14:32 | Outpatient (CLI) | payer MEDICARE, OTHER, SELFPAY ==
[2018-12-08 14:46] VITALS: BMI 28.8
--- NOTE | 2019-03-02 14:35 | DI.US.S_ITS ---
PROCEDURE: US PERIPH VENOUS LOW EXTREM RT INDICATIONS: TORN RIGHT CALF MUSCLE TECHNIQUE: Real-time imaging, as well as color and pulse Doppler interrogation, were performed of the lower extremity deep veins from the inguinal ligament to the popliteal fossa. COMPARISON: [facility], , PVE UNILATERAL RIGHT, 12/31/2016, 11:03. FINDINGS: The common femoral, femoral and popliteal veins are normally compressible, and free of intraluminal thrombus. Color and pulse Doppler demonstrate normal phasic intraluminal flow. There is normal augmentation response to distal compression maneuver. There is a complex fluid collection in the right calf measuring 4.6 x 1.5 x 3.8 cm, demonstrating no internal flow. IMPRESSION: 1. No DVT in the right lower extremity. 2. A 4.6 x 1.5 x 3.8 cm complex fluid collection in the right calf, most likely a hematoma. Dictated by: Lucy Reynolds M.D. on 03/02/2019 at 15:37 Approved by: Lucy Reynolds M.D. on 03/02/2019 at 15:39
== END ==
PROVIDERS: PCP Student in an Organized Health Care Education/Training Program; Visit Provider Hospitalist
DX: M79.89 Other specified soft tissue disorders (principal); S86.911A Strain of unspecified muscle(s) and tendon(s) at lower leg level, right leg, initial encounter
CPT/HCPCS: 93971

== ENCOUNTER → 2020-02-25 14:47 | Outpatient (CLI) | payer MEDICARE, OTHER, SELFPAY ==
[2018-12-08 14:46] VITALS: BMI 28.8
[2020-02-25 15:21] LABS: Hematocrit 34.9 % (41-53); Hemoglobin 11.5 g/dL (13.5-17.5); Mean Corpuscular Hemoglobin 30.8 PG (26-34); Mean Corpuscular Volume 93.5 fL (80-100); Platelet Count 259 X10^3/uL (150-400); Red Blood Cell Count 3.73 X10^6/uL (4.5-5.9); Red Cell Distribution Width 14.5 % (11.6-14.8); White Blood Cell Count 6.5 X10^3/uL (4.5-11.0)
[2020-02-25 15:23] LABS: Reticulocyte Count, Percent 1.1 % (0.87-2.60)
[2020-02-25 15:59] LABS: Blood Urea Nitrogen 34 mg/dL (9-20); Calcium 8.8 mg/dL (8.4-10.2); Carbon Dioxide 21 mmol/L (22-32); Chloride 105 mmol/L (98-107); Estimated Glomerular Filt Rate 34.3 mL/min (>60); Glucose 105 mg/dL (80-110); HEMOLYSIS < 15 (0-50); Potassium 4.9 mmol/L (3.4-5.1); Sodium 134 mmol/L (137-145); Uric Acid 6.8 mg/dL (3.5-8.5)
[2020-02-25 16:36] LABS: Vitamin D 25 Hydroxy (D3) 25.8 ng/mL (30.0-100.0)
[2020-02-26 08:13] LABS: Parathyroid Hormone Int 22 pg/mL (15-65)
== END ==
PROVIDERS: PCP Student in an Organized Health Care Education/Training Program; Referring Provider Student in an Organized Health Care Education/Training Program; Visit Provider Student in an Organized Health Care Education/Training Program
DX: I10 Essential (primary) hypertension (principal); M10.9 Gout, unspecified; N18.3 Chronic kidney disease, stage 3 (moderate); D64.9 Anemia, unspecified
CPT/HCPCS: 36415; 80048; 82306; 83970; 84550; 85027; 85045

== ENCOUNTER → 2020-04-27 06:55 | Outpatient (CLI) | payer MEDICARE, OTHER, SELFPAY ==
[2018-12-08 14:46] VITALS: BMI 28.8
--- NOTE | 2020-04-27 16:46 | DI.ECHO.S_ITS ---
Echocardiogram Report + + :Name: PRAFUL MANUEL Study Date: 04/27/2020 Height: 71 in : :[facility] Weight: 190 lb : : Gender: Male BSA: 2.1 m2 : :: 1935 Age: 84 yrs BP: 156/85 mmHg: :Reason For Study: hypertension : :Ordering Physician: JAELYN, : :SHARMIN Performed By: Audra Aguilar : :Referring: SHARMIN CHRISTY : + + Interpretation Summary The patient was in sinus bradycardia with heart rates between 49-55 bpm during the exam. The left ventricle is normal in size and wall thickness. The ejection fraction is estimated to be 60-65%. The right ventricle is normal in size and function. There is discrete nodular thickening of the non- coronary cusp. There is reduced mobility of the non-coronary cusp. There is no hemodynamically significant valvular aortic stenosis. The IVC is of normal diameter and collapses greater than 50% with a sniff. This suggests a low right atrial pressure of 3 mm Hg. Procedure: A two-dimensional transthoracic echocardiogram with color flow and Doppler was performed. The study quality was technically adequate. The patient was in sinus bradycardia with heart rates between 49-55 bpm during the exam. The patient had occasional PACs during the exam. Left Ventricle: The left ventricle is normal in size and wall thickness. There is no thrombus. The ejection fraction is estimated to be 60-65%. There are no focal wall motion abnormalities. Diastolic parameters suggest a relaxation abnormality of the left ventricle, consistent with probable normal filling pressures. Right Ventricle: The right ventricle is normal in size and function. Atria: The left atrium is mildly dilated. The right atrium is normal in size. There is no Doppler evidence for an interatrial shunt. Mitral Valve: There is mild mitral annular calcification. The mitral valve leaflets appear mildly thickened, but open well. There is trace mitral regurgitation. Aortic Valve: The aortic valve is trileaflet. There is discrete nodular thickening of the non- coronary cusp. There is moderate aortic valve sclerosis. There is reduced mobility of the non-coronary cusp. There is no hemodynamically significant valvular aortic stenosis. There is trace aortic regurgitation. Tricuspid Valve: The tricuspid valve is normal in structure and function. Pulmonary artery pressures cannot be estimated because of the lack of a measurable TR jet velocity but the IVC suggests a CVP of around 3 mmHg. There is trace tricuspid regurgitation. Pulmonic Valve: The pulmonic valve is not well seen, but is grossly normal. There is mild pulmonic regurgitation. Great Vessels: The aortic root is normal size. The ascending aorta is normal in size. The IVC is of normal diameter and collapses greater than 50% with a sniff. This suggests a low right atrial pressure of 3 mm Hg. Pericardium/ Pleura There is no pericardial effusion. There is no pleural effusion. MMode/2D Measurements & Calculations LVIDd: 4.2 cm LVOT diam: 2.2 cm LVIDs: 2.7 cm Ao root diam: 3.6 cm FS: 37.2 % asc Aorta Diam: 3.4 cm EPSS: 1.3 cm Ao Arch Diam (Prox Trans): 3.0 cm IVSd: 1.0 cm LVPWd: 0.93 cm LV lopez. diameter/BSA (cm/m^2): 2.0 LV sys. diameter/BSA (cm/m^2): 1.3 LA A2 area: 25.4 cm2 RA long axis: 5.3 cm LA A4 area: 22.2 cm2 RA area: 19.3 cm2 LA length (vol): 5.8 cm RA vol: 59.4 ml LA vol: 83.0 ml RA : 28.8 ml/m2 LA vol index: 40.2 ml/m2 IVC diam: 1.3 cm RVD1 (basal): 4.0 cm TAPSE: 2.2 cm Doppler Measurements & Calculations Ao V2 max: 211.4 cm/sec LVOT Max Justen: 103.7 cm/sec Ao V2 mean: 130.6 cm/sec LV V1 max P.3 mmHg Ao max P.1 mmHg LV V1 VTI: 27.4 cm Ao mean P.2 mmHg ESTHER(I,D): 2.2 cm2 Ao V2 VTI: 45.0 cm ESTHER(V,D): 1.8 cm2 sev ratio: 0.61 ESTHER indexed to BSA (cm^2/m^2): 1.1 MV E max justen: 82.2 cm/sec PA V2 max: 83.7 cm/sec MV A max justen: 106.6 cm/sec PA V2 mean: 53.1 cm/sec MV E/A: 0.77 PA mean P.3 mmHg Med Peak E' Justen: 6.8 cm/sec E/E' med: 12.1 Lat Peak E' Justen: 9.4 cm/sec E/E' lat: 8.7 E/e' average: 10.4 MV dec time: 0.28 sec SVLVOT): 100.0 ml Reading Physician:04:46 PM
== END ==
PROVIDERS: PCP Student in an Organized Health Care Education/Training Program; Referring Provider Student in an Organized Health Care Education/Training Program; Visit Provider Family Medicine
DX: I37.1 Nonrheumatic pulmonary valve insufficiency (principal); I10 Essential (primary) hypertension
CPT/HCPCS: 93306

== ENCOUNTER → 2020-09-09 13:55 | Outpatient (CLI) | payer MEDICARE, OTHER, SELFPAY ==
[2018-12-08 14:46] VITALS: BMI 28.8
[2020-09-09 15:01] LABS: COVID19 -Nasal RAPID Negative (Negative)
== END ==
PROVIDERS: PCP Student in an Organized Health Care Education/Training Program; Visit Provider Physician Assistant
DX: Z20.822 Contact with and (suspected) exposure to COVID-19 (principal)
CPT/HCPCS: 87635; C9803

== ENCOUNTER 2020-09-12 06:46 | Day surgery (SDC) | payer MEDICARE, OTHER, SELFPAY ==
[2018-12-08 14:46] VITALS: BMI 28.8
[2020-09-12] MEDS: PROPARACAINE 0.5% OPHTH SOL 2 DROPS EYE-OP (07:47)
[2020-09-12] MEDS: CATARACT EYE COMPOUND (10 DROPS/SYRINGE) 3 DROPS EYE-OP (07:48)
[2020-09-12 07:49] VITALS: BP 158/73; PULSE 58; RESP 17; TEMP 37; O2SAT 100; BMI 27.1
--- NOTE | 2020-09-12 08:30 | PM.PREOP ---
Pre-operative Note Interval Note History & Physical reviewed/Exam performed by Physician: Yes Changes to H&P: No
--- NOTE | 2020-09-12 08:30 | PM.OP.1 ---
Operative Date/Time/Diagnoses Pre-op diagnosis: Nuclear cataract right eye Procedure & Clinicians Procedure: Cataract Surgery Same procedure as scheduled: Yes Surgeon: Stuart Escudero Anesthesia Type: MAC +/- and Sedation Operative Notes Procedure in detail: Patient brought to the operating suite. Tetracaine drops placed in the right eye. Patient was prepped and draped in sterile manner. Wire lid speculum was placed in the eye. Betadine drops were placed on the eye. This was irrigated. Lidocaine jelly was placed on the eye. A paracentesis port was created with a side-port blade. 0.1 mL 1% preservative free lidocaine was injected into the anterior chamber. The anterior chamber was deepened with viscoelastic. 2.6 mm keratome was used to create a temporal clear corneal incision. Cystotome and Utrata forceps were used to create continuous tear capsulorrhexis. Balanced salt solution was used to hydro dissect the nucleus. The phacoemulsification handpiece was inserted and the nucleus was removed using the stop and chop technique. The nucleous was very dense. The irrigation aspiration handpiece was inserted and the remaining cortex was removed. Anterior chamber was deepened with viscoelastic. An Gilliam ZCB00 intraocular lens with a power of 19.5 was injected into the capsular bag. Irrigation aspiration handpiece was inserted and the remaining viscoelastic was removed. Incision was hydrated with balanced salt solution and found to be leak free with pressure with Weck-Isabelle sponges. 0.1 mL Vigamox injected anterior chamber. 0.3 mL Kenalog 10 mg was injected subconjunctivally. Lid speculum was removed. The patient left the operating room in excellent condition. Complications: none Post-operative Condition: stable Disposition: same day surgery
[2020-09-12] MEDS: PHENYLEPHRINE/LIDOCAINE VIAL (OR) 0.2 ML EYE-OP (08:46)
[2020-09-12] MEDS: MOXIFLOXACIN INJ 5 MG/ML VIAL EYE-OP (08:46)
[2020-09-12] MEDS: TRIAMCINOLONE 50 MG/5 ML VIAL INJ (08:46)
[2020-09-12] MEDS: BALANCED SALT IRRIG SOLN NO.2 500 ML, EPINEPHrine 1 MG IRR (08:47)
[2020-09-12] MEDS: TETRACAINE 0.5% OPHTH DROPS 4 ML 2 DROPS EYE-OP (08:47)
[2020-09-12] MEDS: LIDOCAINE JELLY 2% 5 ML 1 APPLIC TOP (08:47)
[2020-09-12] MEDS: CHONDROIDTIN/SOD HYALURONATE 1.05 ML SYRINGE INTRAOCULA (08:47)
[2020-09-12 09:09] VITALS: BP 142/68; PULSE 51; RESP 18; TEMP 36.6; O2SAT 100
== END 2020-09-12 09:13 | disposition home or self-care (01) ==
PROVIDERS: PCP Student in an Organized Health Care Education/Training Program; Referring Provider Student in an Organized Health Care Education/Training Program; Visit Provider Ophthalmology
PROC: (CPT 66984; principal; 2020-09-12 08:45)
DX: H25.11 Age-related nuclear cataract, right eye (principal); I10 Essential (primary) hypertension; E78.5 Hyperlipidemia, unspecified; Z86.73 Personal history of transient ischemic attack (TIA), and cerebral infarction without residual deficits; D64.9 Anemia, unspecified; N28.9 Disorder of kidney and ureter, unspecified
CPT/HCPCS: 66984; J0171; J2250; J3301

== ENCOUNTER → 2020-09-19 14:57 | Outpatient (CLI) | payer MEDICARE, OTHER, SELFPAY ==
[2018-12-08 14:46] VITALS: BMI 28.8
[2020-09-19 16:26] LABS: Hematocrit 37.2 % (41-53); Hemoglobin 12.6 g/dL (13.5-17.5); Mean Corpuscular Hemoglobin 31.9 PG (26-34); Mean Corpuscular Volume 93.8 fL (80-100); Platelet Count 272 X10^3/uL (150-400); Red Blood Cell Count 3.97 X10^6/uL (4.5-5.9); Red Cell Distribution Width 13.8 % (11.6-14.8); White Blood Cell Count 8.3 X10^3/uL (4.5-11.0)
[2020-09-19 16:46] LABS: Blood Urea Nitrogen 45 mg/dL (9-20); Carbon Dioxide 23 mmol/L (22-32); Chloride 103 mmol/L (98-107); Estimated Glomerular Filt Rate 29.7 mL/min (>60); Glucose 94 mg/dL (80-110); HEMOLYSIS < 15 (0-50); Sodium 133 mmol/L (137-145)
[2020-09-19 17:03] LABS: Vitamin D 25 Hydroxy (D3) 34.7 ng/mL (30.0-100.0)
== END ==
PROVIDERS: PCP Student in an Organized Health Care Education/Training Program; Referring Provider Student in an Organized Health Care Education/Training Program; Visit Provider Student in an Organized Health Care Education/Training Program
DX: E55.9 Vitamin D deficiency, unspecified (principal); N18.30 Chronic kidney disease, stage 3 unspecified; D63.1 Anemia in chronic kidney disease
CPT/HCPCS: 36415; 80048; 82306; 85027

== ENCOUNTER → 2020-09-23 12:10 | Outpatient (CLI) | payer MEDICARE, OTHER, SELFPAY ==
[2018-12-08 14:46] VITALS: BMI 28.8
[2020-09-23 13:50] LABS: COVID19 -Nasal RAPID Negative (Negative)
== END ==
PROVIDERS: PCP Student in an Organized Health Care Education/Training Program; Visit Provider Nurse Practitioner
DX: Z01.812 Encounter for preprocedural laboratory examination (principal); Z20.822 Contact with and (suspected) exposure to COVID-19
CPT/HCPCS: 87635; C9803

== ENCOUNTER 2020-09-26 08:58 | Day surgery (SDC) | payer MEDICARE, OTHER, SELFPAY ==
[2018-12-08 14:46] VITALS: BMI 28.8
[2020-09-26] MEDS: PROPARACAINE 0.5% OPHTH SOL 2 DROPS EYE-OP (09:29)
[2020-09-26 09:30] VITALS: BP 126/72; PULSE 55; RESP 16; TEMP 36.7; O2SAT 100; BMI 26.4
[2020-09-26] MEDS: CATARACT EYE COMPOUND (10 DROPS/SYRINGE) 3 DROPS EYE-OP (09:39)
--- NOTE | 2020-09-26 11:03 | P.OP_ITS ---
Operative Date/Time/Diagnoses Pre-op diagnosis: Nuclear Cataract Left eye Post-op diagnosis: same Procedure & Clinicians Same procedure as scheduled: Yes Surgeon: Stuart Escudero Anesthesia Type: MAC +/- and Sedation Operative Notes Procedure in detail: Patient brought to the operating suite. Tetracaine drops placed in the left eye. Patient was prepped and draped in sterile manner. Wire lid speculum was placed in the eye. Betadine drops were placed on the eye. This was irrigated. Lidocaine jelly was placed on the eye. A paracentesis port was created with a side-port blade. 0.1 mL 1% preservative free lidocaine was injected into the anterior chamber. The anterior chamber was deepened with viscoelastic. 2.6 mm keratome was used to create a temporal clear corneal incision. Cystotome and Utrata forceps were used to create continuous tear capsulorrhexis. Balanced salt solution was used to hydro dissect the nucleus. The phacoemulsification handpiece was inserted and the nucleus was removed using the stop and chop technique. The irrigation aspiration handpiece was inserted and the remaining cortex was removed. Anterior chamber was deepened with viscoe lastic. An Gilliam ZCB00 intraocular lens with a power of 20.0 was injected into the capsular bag. Irrigation aspiration handpiece was inserted and the remaining viscoelastic was removed. Incision was hydrated with balanced salt solution and found to be leak free with pressure with Weck-Isabelle sponges. 0.1 mL Vigamox injected anterior chamber. 0.3 mL Kenalog 10 mg was injected subconjunctivally. Lid speculum was removed. The patient left the operating room in excellent condition. Complications: none Post-operative Condition: stable Disposition: same day surgery
--- NOTE | 2020-09-26 11:03 | PM.PREOP ---
Pre-operative Note Interval Note History & Physical reviewed/Exam performed by Physician: Yes Changes to H&P: No
[2020-09-26] MEDS: TRIAMCINOLONE 50 MG/5 ML VIAL INJ (11:18)
[2020-09-26] MEDS: PHENYLEPHRINE/LIDOCAINE VIAL (OR) 0.2 ML EYE-OP (11:18)
[2020-09-26] MEDS: LIDOCAINE JELLY 2% 5 ML 1 APPLIC TOP (11:18)
[2020-09-26] MEDS: MOXIFLOXACIN INJ 5 MG/ML VIAL EYE-OP (11:18)
[2020-09-26] MEDS: BALANCED SALT IRRIG SOLN NO.2 500 ML, EPINEPHrine 1 MG IRR (11:19)
[2020-09-26] MEDS: TETRACAINE 0.5% OPHTH DROPS 4 ML 2 DROPS EYE-OP (11:19)
[2020-09-26] MEDS: CHONDROIDTIN/SOD HYALURONATE 1.05 ML SYRINGE INTRAOCULA (11:19)
[2020-09-26 11:50] VITALS: BP 137/58; PULSE 46; RESP 16; TEMP 36.7; O2SAT 98
== END 2020-09-26 11:50 | disposition home or self-care (01) ==
PROVIDERS: PCP Student in an Organized Health Care Education/Training Program; Referring Provider Ophthalmology; Visit Provider Ophthalmology
PROC: (CPT 66984; principal; 2020-09-26 10:45)
DX: H25.12 Age-related nuclear cataract, left eye (principal); I10 Essential (primary) hypertension; D64.9 Anemia, unspecified; Z86.73 Personal history of transient ischemic attack (TIA), and cerebral infarction without residual deficits; N28.9 Disorder of kidney and ureter, unspecified
CPT/HCPCS: 66984; J0171; J2250; J3010; J3301

== ENCOUNTER → 2021-05-15 09:18 | Outpatient (CLI) | payer MEDICARE, OTHER, SELFPAY ==
[2021-05-08 11:15] VITALS: BMI 28.8
[2021-05-15 10:25] LABS: Blood Urea Nitrogen 30 mg/dL (9-20); Calcium 8.9 mg/dL (8.4-10.2); Carbon Dioxide 25 mmol/L (22-32); Chloride 106 mmol/L (98-107); Cholesterol 136 mg/dL (140-199); Estimated Glomerular Filt Rate 32.1 mL/min (>60); Glucose 101 mg/dL (80-110); HDL Cholesterol 71 mg/dL (40-60); HEMOLYSIS < 15 (0-50); LDL Cholesterol Calculated 47 mg/dL (<100); Phosphorous 4.1 mg/dL (2.3-3.7); Potassium 4.5 mmol/L (3.4-5.1); Sodium 138 mmol/L (137-145); Triglycerides 92 mg/dL (35-150)
[2021-05-15 10:29] LABS: Vitamin D 25 Hydroxy (D3) 42.9 ng/mL (30.0-100.0)
== END ==
PROVIDERS: PCP Student in an Organized Health Care Education/Training Program; Referring Provider Student in an Organized Health Care Education/Training Program; Visit Provider Student in an Organized Health Care Education/Training Program
DX: N18.30 Chronic kidney disease, stage 3 unspecified (principal); E78.00 Pure hypercholesterolemia, unspecified; E55.9 Vitamin D deficiency, unspecified; D63.1 Anemia in chronic kidney disease; I10 Essential (primary) hypertension
CPT/HCPCS: 36415; 80048; 80061; 82306; 84100

== ENCOUNTER → 2022-04-10 11:47 | Outpatient (CLI) | payer MEDICARE, OTHER, SELFPAY ==
[2021-05-08 11:15] VITALS: BMI 28.8
[2022-04-10 14:02] LABS: Hematocrit 28.8 % (41-53); Mean Corpuscular HGB Conc 34.9 % (30-36); Mean Corpuscular Hemoglobin 32.3 PG (26-34); Mean Corpuscular Volume 92.7 fL (80-100); Platelet Count 222 X10^3/uL (150-400); Red Blood Cell Count 3.11 X10^6/uL (4.5-5.9); Red Cell Distribution Width 14.5 % (11.6-14.8); White Blood Cell Count 4.2 X10^3/uL (4.5-11.0)
[2022-04-10 14:33] LABS: BUN Creatinine Ratio 16.3 (6-22); Blood Urea Nitrogen 40 mg/dL (9-20); Calcium 8.5 mg/dL (8.4-10.2); Carbon Dioxide 21 mmol/L (22-32); Chloride 104 mmol/L (98-107); Cholesterol 112 mg/dL (140-199); Estimated Glomerular Filt Rate 25 mL/min (>60); Glucose 120 mg/dL (80-110); HDL Cholesterol 62 mg/dL (40-60); HEMOLYSIS < 15 (0-50); LDL Cholesterol Calculated 37 mg/dL (<100); Potassium 5.1 mmol/L (3.4-5.1); Sodium 135 mmol/L (137-145); Triglycerides 64 mg/dL (35-150); Uric Acid 8.3 mg/dL (3.5-8.5)
== END ==
PROVIDERS: PCP Student in an Organized Health Care Education/Training Program; Referring Provider Student in an Organized Health Care Education/Training Program; Visit Provider Student in an Organized Health Care Education/Training Program
DX: E78.00 Pure hypercholesterolemia, unspecified (principal); N18.32 Chronic kidney disease, stage 3b; D63.1 Anemia in chronic kidney disease; I10 Essential (primary) hypertension; N18.9 Chronic kidney disease, unspecified; M10.9 Gout, unspecified; E55.9 Vitamin D deficiency, unspecified
CPT/HCPCS: 36415; 80048; 80061; 82306; 84100; 84550; 85027

== ENCOUNTER → 2022-05-31 11:58 | Outpatient (CLI) | payer MEDICARE, OTHER, SELFPAY ==
[2021-05-08 11:15] VITALS: BMI 28.8
[2022-05-31 12:37] LABS: Hematocrit 28.6 % (41-53); Hemoglobin 9.9 g/dL (13.5-17.5)
[2022-05-31 13:21] LABS: BUN Creatinine Ratio 16.7 (6-22); Blood Urea Nitrogen 49 mg/dL (9-20); Calcium 8.4 mg/dL (8.4-10.2); Carbon Dioxide 19 mmol/L (22-32); Chloride 104 mmol/L (98-107); Estimated Glomerular Filt Rate 20 mL/min (>60); Glucose 97 mg/dL (80-110); HEMOLYSIS < 15 (0-50); Potassium 4.8 mmol/L (3.4-5.1); Sodium 137 mmol/L (137-145)
[2022-05-31 16:15] LABS: Creatinine Urine Random 62.5 mg/dL; Protein (Total) Urine Random 108 mg/dL (0-12); Protein Creatinine Ratio Urine 1.72 GRAM/24H
== END ==
PROVIDERS: PCP Student in an Organized Health Care Education/Training Program; Referring Provider Student in an Organized Health Care Education/Training Program; Visit Provider Student in an Organized Health Care Education/Training Program
DX: N05.9 Unspecified nephritic syndrome with unspecified morphologic changes (principal); D64.9 Anemia, unspecified; R80.9 Proteinuria, unspecified
CPT/HCPCS: 36415; 80048; 82570; 84156; 85014; 85018

== ENCOUNTER → 2022-06-06 16:07 | Outpatient (CLI) | payer MEDICARE, OTHER, SELFPAY ==
[2021-05-08 11:15] VITALS: BMI 28.8
[2022-06-06 19:49] LABS: Hepatitis B Surface Antigen NEGATIVE s/c (NEGATIVE)
[2022-06-06 20:07] LABS: Hep C Virus Ab w/Reflex Quant NEGATIVE s/c (NEGATIVE)
[2022-06-06 20:11] LABS: Microalbumin Urine Random 6.3 mg/dL (0-1.6)
[2022-06-06 20:12] LABS: Creatinine Urine Random 102.7 mg/dL; Microalbumi Creatinin Ratio Ur 61.3 ug/mg CR (<30)
[2022-06-08 00:07] LABS: Complement C3 101 mg/dL (82-167)
[2022-06-08 00:53] LABS: Hepatitis B Surf AB Quant 154.3 mIU/mL (Immunity>9.9)
[2022-06-08 04:05] LABS: Hepatitis B Core Antibody Positive (Negative)
[2022-06-08 17:13] LABS: Free Kappa Lt Chains, Serum 110.5 mg/L (3.3-19.4); Free Lambda Lt Chains,Serum 63.9 mg/L (5.7-26.3)
[2022-06-08 18:18] LABS: DNA (DS) Antibody <1 IU/mL (0-9)
[2022-06-10 13:51] LABS: Cytoplasmic C-ANCA <1:20 titer (Neg:<1:20); Perinuclear P-ANCA <1:20 titer (Neg:<1:20)
[2022-06-10 14:51] LABS: Albumin 3.5 g/dL (2.9-4.4); Alpha-1-Globulin 0.2 g/dL (0.0-0.4); Alpha-2-Globulin 0.7 g/dL (0.4-1.0); Globulin Total 2.9 g/dL (2.2-3.9); Protein, Total 6.4 g/dL (6.0-8.5)
[2022-06-11 15:42] LABS: ANA Screen, IFA Negative (.); Alpha-1 Globulin, Ur 3.5 % (.); Beta Globulin, Ur 11.7 % (.); M-Spike % Not Observed % (Not Observed); Urine Total Protein 136.6 mg/dL (Not Estab.)
== END ==
PROVIDERS: PCP Student in an Organized Health Care Education/Training Program; Referring Provider Student in an Organized Health Care Education/Training Program; Visit Provider Student in an Organized Health Care Education/Training Program
DX: L93.2 Other local lupus erythematosus (principal); M31.30 Wegener's granulomatosis without renal involvement; M32.10 Systemic lupus erythematosus, organ or system involvement unspecified; N00.9 Acute nephritic syndrome with unspecified morphologic changes; D89.89 Other specified disorders involving the immune mechanism, not elsewhere classified; B19.10 Unspecified viral hepatitis B without hepatic coma; B17.10 Acute hepatitis C without hepatic coma; R80.9 Proteinuria, unspecified; D47.2 Monoclonal gammopathy; N30.00 Acute cystitis without hematuria
CPT/HCPCS: 36415; 82043; 82570; 83516; 83883; 84155; 84156; 84165; 84166; 86038; 86160; 86225; 86256; 86704; 86706; 86803; 87340

== ENCOUNTER → 2022-06-07 15:17 | Outpatient (CLI) | payer MEDICARE, OTHER, SELFPAY ==
[2021-05-08 11:15] VITALS: BMI 28.8
--- NOTE | 2022-06-07 15:20 | DI.RAD.S_ITS ---
PROCEDURE: XR CHEST 2V INDICATIONS: DYSPNEA TECHNIQUE: 2 views of the chest were acquired. COMPARISON: [facility], , CHEST 2 VIEW, 01/06/2014, 17:08. FINDINGS: Surgical changes and devices: None. Lungs and pleura: Lungs are clear. No pleural effusions or pneumothorax. Mediastinum: Mediastinal contours are normal. Heart size is normal. Bones and chest wall: No suspicious bony abnormalities. Soft tissues appear unremarkable. IMPRESSION: No acute cardiopulmonary findings. Dictated by: Dena Alarcon M.D. on 06/07/2022 at 16:16 Approved by: Dena Alarcon M.D. on 06/07/2022 at 16:17
== END ==
PROVIDERS: PCP Student in an Organized Health Care Education/Training Program; Referring Provider Student in an Organized Health Care Education/Training Program; Visit Provider Physician Assistant
DX: R06.00 Dyspnea, unspecified (principal)
CPT/HCPCS: 71046

== ENCOUNTER → 2022-06-10 12:29 | Outpatient (CLI) | payer MEDICARE, OTHER, SELFPAY ==
[2021-05-08 11:15] VITALS: BMI 28.8
--- NOTE | 2022-06-10 12:33 | DI.US.S_ITS ---
PROCEDURE: US RENAL COMPLETE INDICATIONS: ACUTE KIDNEY FAILURE TECHNIQUE: Real-time scanning was performed of the kidneys and bladder, with image documentation. COMPARISON: [facility], , CT THORAX/ABDOMEN/PELVIS WITH CONTRAST, 05/19/2006, 22:09. FINDINGS: Kidneys: Relative atrophy and cortical thinning of the right kidney. Length is 8.7 cm No hydronephrosis. Multiple suspected cysts, the largest measuring up to 1.4 cm in the inferior pole. The left kidney measures 10.8 cm. No hydronephrosis. Normal cortical thickness. Bladder: Pre-void bladder volume is 14 mL. Post-void residual not measured. Pre-void images demonstrate no intraluminal masses or stones. Ureteral jets are not visualized. (Of note, ureteral jets may not be detectable in up to 25% of cases due to insufficient differences in specific gravity between ureteral and bladder urine). Miscellaneous: Suspected fatty liver. IMPRESSION: Relatively smaller appearance of the right kidney compared to the left, with cortical thinning. No hydronephrosis bilaterally. Multiple suspected right-sided simple cysts. Possible fatty liver. Bladder is under distended on this evaluation. Dictated by: All Clayton M.D. on 06/10/2022 at 13:50 Approved by: All Clayton M.D. on 06/10/2022 at 13:53
== END ==
PROVIDERS: PCP Student in an Organized Health Care Education/Training Program; Referring Provider Student in an Organized Health Care Education/Training Program; Visit Provider Student in an Organized Health Care Education/Training Program
DX: N17.9 Acute kidney failure, unspecified (principal)
CPT/HCPCS: 76770

== ENCOUNTER → 2022-07-05 15:31 | Outpatient (CLI) | payer MEDICARE, OTHER, SELFPAY ==
[2021-05-08 11:15] VITALS: BMI 28.8
[2022-07-05 16:23] LABS: Hematocrit 26.7 % (41-53); Hemoglobin 8.8 g/dL (13.5-17.5)
[2022-07-05 16:37] LABS: BUN Creatinine Ratio 15.8 (6-22); Blood Urea Nitrogen 59 mg/dL (9-20); Calcium 8.8 mg/dL (8.4-10.2); Carbon Dioxide 25 mmol/L (22-32); Chloride 102 mmol/L (98-107); Estimated Glomerular Filt Rate 15 mL/min (>60); Glucose 107 mg/dL (80-110); HEMOLYSIS < 15 (0-50); Phosphorous 5.3 mg/dL (2.3-3.7); Potassium 4.5 mmol/L (3.4-5.1); Sodium 139 mmol/L (137-145)
[2022-07-05 17:43] LABS: Creatinine Urine Random 92.8 mg/dL; Protein (Total) Urine Random 85 mg/dL (0-12); Protein Creatinine Ratio Urine 0.91 GRAM/24H
[2022-07-05 18:08] LABS: Appearance Urine UA CLEAR; Bilirubin Urine UA NEGATIVE (NEGATIVE); Color Urine UA YELLOW; Glucose Urine UA NEGATIVE (Negative); Ketones Urine UA NEGATIVE (NEGATIVE); Leukocyte Esterase Urine UA TRACE (NEGATIVE); Nitrite Urine UA NEGATIVE (Negative); Occult Blood Urine UA NEGATIVE (Negative); Protein Urine UA 2+ (Negative); Urobilinogen Urine UA 0.2 E.U./dL (0.2); pH Urine UA 6.5 (4.5-8.0)
[2022-07-05 18:23] LABS: RBC Urine None Seen (0-5/HPF); Squamous Epithelial Cell Urine None Seen (0-5/HPF); WBC Urine 0-1/HPF (0-5/HPF)
[2022-07-05 18:24] LABS: Bacteria Urine None Seen; Culture Indicated Urine Specimen Cultured
[2022-07-07 10:39] LABS: Parathyroid Hormone Int 45 pg/mL (15-65)
== END ==
PROVIDERS: PCP Student in an Organized Health Care Education/Training Program; Referring Provider Student in an Organized Health Care Education/Training Program; Visit Provider Student in an Organized Health Care Education/Training Program
DX: N05.9 Unspecified nephritic syndrome with unspecified morphologic changes (principal); D64.9 Anemia, unspecified; E83.30 Disorder of phosphorus metabolism, unspecified; N25.81 Secondary hyperparathyroidism of renal origin; N30.00 Acute cystitis without hematuria; R80.9 Proteinuria, unspecified
CPT/HCPCS: 36415; 80048; 81001; 82570; 83970; 84100; 84156; 85014; 85018; 87086

== ENCOUNTER → 2022-07-16 12:13 | Outpatient (CLI) | payer MEDICARE, OTHER, SELFPAY ==
[2021-05-08 11:15] VITALS: BMI 28.8
[2022-07-16 14:10] LABS: BUN Creatinine Ratio 15.3 (6-22); Blood Urea Nitrogen 53 mg/dL (9-20); Calcium 9.4 mg/dL (8.4-10.2); Carbon Dioxide 22 mmol/L (22-32); Chloride 101 mmol/L (98-107); Estimated Glomerular Filt Rate 17 mL/min (>60); Glucose 120 mg/dL (80-110); HEMOLYSIS < 15 (0-50); Potassium 3.8 mmol/L (3.4-5.1); Sodium 139 mmol/L (137-145)
[2022-07-17 08:49] LABS: Hepatitis B Core Antibody Positive (Negative)
[2022-07-18 05:36] LABS: Hepatitis B Surf Ab Qualitativ Reactive (.)
[2022-07-18 15:46] LABS: Hepatitis B Surface Antigen NEGATIVE s/c (NEGATIVE)
[2022-07-18 16:04] LABS: Hep C Virus Ab w/Reflex Quant NEGATIVE s/c (NEGATIVE)
== END ==
PROVIDERS: PCP Student in an Organized Health Care Education/Training Program; Referring Provider Student in an Organized Health Care Education/Training Program; Visit Provider Student in an Organized Health Care Education/Training Program
DX: N05.9 Unspecified nephritic syndrome with unspecified morphologic changes (principal); B19.10 Unspecified viral hepatitis B without hepatic coma; B17.10 Acute hepatitis C without hepatic coma
CPT/HCPCS: 36415; 80048; 86704; 86706; 86803; 87340

== ENCOUNTER → 2023-03-21 12:40 | Outpatient (ROUT) | payer MEDICARE, OTHER, SELFPAY ==
[2021-05-08 11:15] VITALS: BMI 28.8
[2023-03-21 12:53] LABS: Add Manual Diff / Slide Review NO; Basophils Absolute Auto 100 /uL (0-100); Basophils Percent Auto 0.8 % (0-2); Eosinophils Absolute Auto 400 /uL (0-450); Eosinophils Percent Auto 5.4 % (2-4); Hematocrit 30.4 % (41-53); Hemoglobin 10.3 g/dL (13.5-17.5); Lymphocytes Absolute Auto 1200 /uL (1100-4500); Lymphocytes Percent Auto 18.4 % (25-40); Mean Corpuscular Hemoglobin 32.9 PG (26-34); Mean Corpuscular Volume 96.8 fL (80-100); Monocytes Absolute Auto 700 /uL (0-900); Monocytes Percent Auto 10.8 % (3-14); Neutrophils Absolute Auto 4200 /uL (1500-7000); Neutrophils Percent Auto 64.6 % (50-75); Platelet Count 245 X10^3/uL (150-400); Red Blood Cell Count 3.14 X10^6/uL (4.5-5.9); Red Cell Distribution Width 14.9 % (11.6-14.8); White Blood Cell Count 6.5 X10^3/uL (4.5-11.0)
[2023-03-21 13:00] LABS: Alanine Aminotransferase 32 IU/L (<50); Albumin 3.8 g/dL (3.5-5.0); Albumin Globulin Ratio 1.2 (1.0-2.8); Alkaline Phosphatase 101 U/L (38-126); Aspartate Aminotransferase 33 IU/L (17-59); BUN Creatinine Ratio 10.6 (6-22); Bilirubin Total 0.7 mg/dL (0.2-1.3); Blood Urea Nitrogen 34 mg/dL (9-20); C-Reactive Protein Quant 2.1 mg/dL (<1.0); Calcium 8.6 mg/dL (8.4-10.2); Carbon Dioxide 28 mmol/L (22-32); Chloride 96 mmol/L (98-107); Creatine Kinase 56 U/L (55-170); Estimated Glomerular Filt Rate 18 mL/min (>60); Globulin 3.2 g/dL (1.7-4.1); Glucose 96 mg/dL (80-110); HEMOLYSIS < 15 (0-50); Sodium 133 mmol/L (137-145)
[2023-03-21 13:16] LABS: Erythrocyte Sedimentation Rate 53 MM/HR (0-15)
== END ==
PROVIDERS: PCP Student in an Organized Health Care Education/Training Program; Visit Provider Student in an Organized Health Care Education/Training Program
DX: M00.251 Other streptococcal arthritis, right hip (principal); B95.7 Other staphylococcus as the cause of diseases classified elsewhere; N18.6 End stage renal disease
CPT/HCPCS: 80053; 82550; 85025; 85651; 86140

== ENCOUNTER → 2023-03-29 14:57 | Outpatient (ROUT) | payer MEDICARE, OTHER, SELFPAY ==
[2021-05-08 11:15] VITALS: BMI 28.8
[2023-03-29 15:45] LABS: Add Manual Diff / Slide Review NO; Basophils Absolute Auto 0 /uL (0-100); Basophils Percent Auto 0.4 % (0-2); Eosinophils Absolute Auto 300 /uL (0-450); Eosinophils Percent Auto 6.8 % (2-4); Hematocrit 25.9 % (41-53); Hemoglobin 8.8 g/dL (13.5-17.5); Lymphocytes Absolute Auto 1000 /uL (1100-4500); Lymphocytes Percent Auto 22.7 % (25-40); Mean Corpuscular Hemoglobin 32.5 PG (26-34); Mean Corpuscular Volume 95.5 fL (80-100); Monocytes Absolute Auto 700 /uL (0-900); Neutrophils Absolute Auto 2400 /uL (1500-7000); Neutrophils Percent Auto 55.1 % (50-75); Platelet Count 224 X10^3/uL (150-400); Red Blood Cell Count 2.71 X10^6/uL (4.5-5.9); Red Cell Distribution Width 14.2 % (11.6-14.8); White Blood Cell Count 4.4 X10^3/uL (4.5-11.0)
[2023-03-29 15:53] LABS: Alanine Aminotransferase 21 IU/L (<50); Albumin 3.4 g/dL (3.5-5.0); Albumin Globulin Ratio 1.2 (1.0-2.8); Alkaline Phosphatase 111 U/L (38-126); Aspartate Aminotransferase 29 IU/L (17-59); BUN Creatinine Ratio 10.2 (6-22); Bilirubin Total 0.4 mg/dL (0.2-1.3); Blood Urea Nitrogen 32 mg/dL (9-20); Calcium 8.5 mg/dL (8.4-10.2); Carbon Dioxide 31 mmol/L (22-32); Chloride 94 mmol/L (98-107); Creatine Kinase 45 U/L (55-170); Estimated Glomerular Filt Rate 19 mL/min (>60); Globulin 2.9 g/dL (1.7-4.1); Glucose 100 mg/dL (80-110); HEMOLYSIS < 15 (0-50); Potassium 4.2 mmol/L (3.4-5.1); Sodium 132 mmol/L (137-145); Total Protein 6.3 g/dL (6.3-8.2)
[2023-03-29 16:34] LABS: Erythrocyte Sedimentation Rate 63 MM/HR (0-15)
== END ==
PROVIDERS: PCP Student in an Organized Health Care Education/Training Program; Visit Provider Internal Medicine Infectious Disease
DX: M00.251 Other streptococcal arthritis, right hip (principal); B95.7 Other staphylococcus as the cause of diseases classified elsewhere; N18.6 End stage renal disease
CPT/HCPCS: 80053; 82550; 85025; 85651; 86140

== ENCOUNTER → 2023-11-10 14:10 | Outpatient (CLI) | payer MEDICARE, OTHER, SELFPAY ==
[2021-05-08 11:15] VITALS: BMI 28.8
--- NOTE | 2023-11-10 14:15 | DI.RAD.S_ITS ---
PROCEDURE: XR KNEE RT 3V INDICATIONS: PAIN IN RIGHT KNEE TECHNIQUE: 3 views of the knee were acquired. COMPARISON: None. FINDINGS: Bones: Normal mineralization. No fractures or dislocation. Mild medial compartment joint space loss and very slight lateral patellar subluxation. Mild patellar compartment spurs. Soft tissues: No joint effusion. No suspicious soft tissue calcifications. Moderate to heavy peripheral vascular calcification. IMPRESSION: Mild right knee arthritic changes, less extensive than left. Moderate to heavy peripheral vascular calcification. Dictated by: Faye Sullivan M.D. on 11/10/2023 at 17:06 Approved by: Faye Sullivan M.D. on 11/10/2023 at 17:07
--- NOTE | 2023-11-10 14:15 | DI.RAD.S_ITS ---
PROCEDURE: XR KNEE LT 3V INDICATIONS: PAIN IN RIGHT KNEE TECHNIQUE: 3 views of the knee were acquired. COMPARISON: None. FINDINGS: Bones: Normal mineralization. No fractures or dislocation. Moderate medial compartment joint space loss and mild lateral patella subluxation. Mild spurring in the medial and patellofemoral compartment. Soft tissues: Very small joint effusion. Moderately heavy peripheral vascular calcification. IMPRESSION: Arthritic changes, most extensive in the medial compartment. Moderate to heavy peripheral vascular calcification. Dictated by: Faye Sullivan M.D. on 11/10/2023 at 17:05 Approved by: Faye Sullivan M.D. on 11/10/2023 at 17:06
== END ==
PROVIDERS: PCP Family Medicine; Referring Provider Family Medicine; Visit Provider Family Medicine
DX: I70.203 Unspecified atherosclerosis of native arteries of extremities, bilateral legs (principal); M25.561 Pain in right knee
CPT/HCPCS: 73562

== ENCOUNTER 2024-02-06 13:19 | Day surgery (SDC) | payer MEDICARE, OTHER, SELFPAY ==
[2021-05-08 11:15] VITALS: BMI 28.8
[2024-02-06 13:42] VITALS: BP 145/62; PULSE 60; RESP 16; TEMP 37.3; O2SAT 94
--- NOTE | 2024-02-06 14:08 | PM.PREOP ---
Pre-operative Note Interval Note History & Physical reviewed/Exam performed by Physician: Yes Changes to H&P: No
[2024-02-06 14:09] LABS: HEMOLYSIS < 15 (0-50); Potassium 4.4 mmol/L (3.4-5.1)
[2024-02-06 14:34] VITALS: BP 92/32; PULSE 48; RESP 12; TEMP 36.6; O2SAT 96
--- NOTE | 2024-02-06 14:37 | P.OP.COLON_ITS ---
Operative Date/Time/Diagnoses Date of procedure: 02/06/24 Time of procedure: 14:37 Pre-op diagnosis: Colorectal screening in preparation for renal transplantation Post-op diagnosis: same Procedure & Clinicians Study performed: Screening colonoscopy Same procedure as scheduled: Yes Indications: Mr. Keita is a 88-year-old man with end-stage renal disease who is being considered for renal transplantation. His transplant team at the [facility] has requested that he undergo a screening colonoscopy as part of their routine evaluation. Surgeon: Fan Trujillo Procedure Notes Procedure in detail: The history and physical was performed/updated and the patient is ASA class is 4. The procedure was discussed in detail with the patient. Potential risks complications including infection, bleeding, missed diagnosis, perforation, need for surgery, and were explained. Their questions were answered and informed consent was obtained. Patient was brought to the procedure room and placed standard monitoring equipment. The patient's vital signs were monitored continuously throughout the entire procedure. Prior to starting time-out was performed. The patient was placed in the left lateral recumbent position. Procedural sedation was administered by anesthesia. Examination began with a thorough inspection of the perianal area there was no evidence of fissures, fistulae, external hemorrhoids or cutaneous malignancy. The colonoscopy scope was then placed into the anal canal and was advanced to the cecum, which was identified by the ileocecal valve, the appendiceal orifice and the confluence of the taenia. The scope was then slowly withdrawn examining colon thoroughly in all directions, irrigating it of any residual stool. The scope was retroflexed within the rectum The patient tolerated the procedure well. They will be discharged once criteria are met. The prep was of good/excellent quality. The withdrawl time was 6 minutes. FINDINGS * No masses or polyps * Mild diverticulosis of sigmoid colon Specimen(s): none sent Impression: Diverticulosis Post-procedure Recommendations: High fiber diet Plan for aftercare: No further colonoscopy necessary unless symptomatic Disposition: same day surgery
[2024-02-06 14:38] VITALS: BP 99/35; PULSE 49; RESP 16; O2SAT 96
[2024-02-06 14:43] VITALS: BP 103/37; PULSE 48; RESP 15; O2SAT 98
[2024-02-06 14:49] VITALS: BP 122/47; PULSE 50; RESP 18; TEMP 36.4; O2SAT 97
== END 2024-02-06 15:09 | disposition home or self-care (01) ==
PROVIDERS: PCP Family Medicine; Referring Provider Surgery; Visit Provider Surgery
PROC: 0DJD8ZZ Inspection of Lower Intestinal Tract, Via Natural or Artificial Opening Endoscopic (ICD-10-PCS; CPT 45378; principal; 2024-02-06 14:00)
DX: Z12.11 Encounter for screening for malignant neoplasm of colon (principal); N18.6 End stage renal disease; Z99.2 Dependence on renal dialysis; K57.30 Diverticulosis of large intestine without perforation or abscess without bleeding
CPT/HCPCS: G0121; 84132; J2704

== ENCOUNTER → 2024-07-19 09:50 | Outpatient (CLI) | payer MEDICARE, OTHER, SELFPAY ==
[2021-05-08 11:15] VITALS: BMI 28.8
[2024-07-19 10:34] LABS: Add Manual Diff / Slide Review NO; Basophils Absolute Auto 0 /uL (0-100); Basophils Percent Auto 0.7 % (0-2); Eosinophils Absolute Auto 0 /uL (0-450); Eosinophils Percent Auto 1.7 % (2-4); Hematocrit 33.4 % (41-53); Lymphocytes Absolute Auto 500 /uL (1100-4500); Lymphocytes Percent Auto 18.7 % (25-40); Mean Corpuscular HGB Conc 32.9 % (30-36); Mean Corpuscular Hemoglobin 32.3 PG (26-34); Mean Corpuscular Volume 98.3 fL (80-100); Monocytes Absolute Auto 200 /uL (0-900); Neutrophils Absolute Auto 2100 /uL (1500-7000); Neutrophils Percent Auto 72.9 % (50-75); Platelet Count 291 X10^3/uL (150-400); Red Cell Distribution Width 20.3 % (11.6-14.8); White Blood Cell Count 2.9 X10^3/uL (4.5-11.0)
[2024-07-19 10:49] LABS: Alanine Aminotransferase 30 IU/L (<50); Albumin 3.7 g/dL (3.5-5.0); Albumin Globulin Ratio 1.4 (1.0-2.8); Alkaline Phosphatase 100 U/L (38-126); Aspartate Aminotransferase 30 IU/L (17-59); Bilirubin Total 0.6 mg/dL (0.2-1.3); Blood Urea Nitrogen 36 mg/dL (9-20); Calcium 8.9 mg/dL (8.4-10.2); Carbon Dioxide 19 mmol/L (22-32); Chloride 110 mmol/L (98-107); Estimated Glomerular Filt Rate 57 mL/min (>60); Globulin 2.6 g/dL (1.7-4.1); Glucose 110 mg/dL (80-110); HEMOLYSIS < 15 (0-50); Magnesium 1.8 mg/dL (1.6-2.3); Phosphorous 3.6 mg/dL (2.3-3.7); Sodium 136 mmol/L (137-145); Total Protein 6.3 g/dL (6.3-8.2)
[2024-07-19 10:54] LABS: Potassium 5.5 mmol/L (3.4-5.1)
[2024-07-19 10:56] LABS: Anisocytosis 1+; Appearance Urine UA CLEAR; Bilirubin Urine UA NEGATIVE (NEGATIVE); Color Urine UA YELLOW; Glucose Urine UA NEGATIVE (Negative); Ketones Urine UA NEGATIVE (NEGATIVE); Leukocyte Esterase Urine UA TRACE (NEGATIVE); Nitrite Urine UA NEGATIVE (Negative); Occult Blood Urine UA 2+ (Negative); Protein Urine UA NEGATIVE (Negative); Urobilinogen Urine UA 0.2 E.U./dL (0.2)
[2024-07-19 10:58] LABS: Urine Volume 10mL (spun)
[2024-07-19 10:59] LABS: Bacteria Urine None Seen; RBC Urine 1-5/HPF (0-5/HPF); Squamous Epithelial Cell Urine None Seen (0-5/HPF); WBC Urine 0-1/HPF (0-5/HPF)
[2024-07-19 11:00] LABS: Culture Indicated Urine Cult Not Indicated
[2024-07-19 11:33] LABS: Creatinine Urine Random 78.27 mg/dL; Protein (Total) Urine Random 8 mg/dL (0-12)
[2024-07-20 07:10] LABS: Tacrolimus 10.1 ng/mL (2.0-20.0)
== END ==
PROVIDERS: PCP Family Medicine; Referring Provider Internal Medicine Nephrology; Visit Provider Internal Medicine Nephrology
DX: Z94.0 Kidney transplant status (principal); Z48.298 Encounter for aftercare following other organ transplant; T86.90 Unspecified complication of unspecified transplanted organ and tissue; E83.40 Disorders of magnesium metabolism, unspecified; N39.0 Urinary tract infection, site not specified
CPT/HCPCS: 36415; 80053; 80197; 81001; 82570; 83735; 84100; 84156; 85025

== ENCOUNTER → 2024-08-02 09:54 | Outpatient (CLI) | payer MEDICARE, SELFPAY ==
[2021-05-08 11:15] VITALS: BMI 28.8
[2024-08-02 10:51] LABS: Add Manual Diff / Slide Review NO; Basophils Absolute Auto 0 /uL (0-100); Basophils Percent Auto 0.3 % (0-2); Eosinophils Absolute Auto 0 /uL (0-450); Eosinophils Percent Auto 0.3 % (2-4); Hematocrit 34.6 % (41-53); Hemoglobin 11.5 g/dL (13.5-17.5); Lymphocytes Absolute Auto 700 /uL (1100-4500); Lymphocytes Percent Auto 14.8 % (25-40); Mean Corpuscular HGB Conc 33.2 % (30-36); Mean Corpuscular Hemoglobin 32.8 PG (26-34); Mean Corpuscular Volume 98.8 fL (80-100); Monocytes Absolute Auto 300 /uL (0-900); Monocytes Percent Auto 5.4 % (3-14); Neutrophils Absolute Auto 4000 /uL (1500-7000); Neutrophils Percent Auto 79.2 % (50-75); Platelet Count 241 X10^3/uL (150-400); Red Cell Distribution Width 19.3 % (11.6-14.8)
[2024-08-02 11:40] LABS: Alanine Aminotransferase 29 IU/L (<50); Albumin 3.7 g/dL (3.5-5.0); Albumin Globulin Ratio 1.2 (1.0-2.8); Alkaline Phosphatase 105 U/L (38-126); Aspartate Aminotransferase 30 IU/L (17-59); BUN Creatinine Ratio 31.9 (6-22); Bilirubin Total 0.5 mg/dL (0.2-1.3); Blood Urea Nitrogen 37 mg/dL (9-20); Calcium 9.2 mg/dL (8.4-10.2); Carbon Dioxide 23 mmol/L (22-32); Chloride 107 mmol/L (98-107); Estimated Glomerular Filt Rate > 60 mL/min (>60); Glucose 111 mg/dL (80-110); HEMOLYSIS < 15 (0-50); Magnesium 1.9 mg/dL (1.6-2.3); Phosphorous 3.7 mg/dL (2.3-3.7); Sodium 133 mmol/L (137-145); Total Protein 6.7 g/dL (6.3-8.2)
[2024-08-02 11:41] LABS: Potassium 5.5 mmol/L (3.4-5.1)
[2024-08-03 06:05] LABS: Tacrolimus 7.2 ng/mL (2.0-20.0)
== END ==
PROVIDERS: PCP Family Medicine; Referring Provider Internal Medicine Nephrology; Visit Provider Internal Medicine Nephrology
DX: Z94.0 Kidney transplant status (principal); Z48.298 Encounter for aftercare following other organ transplant; T86.90 Unspecified complication of unspecified transplanted organ and tissue; E83.40 Disorders of magnesium metabolism, unspecified
CPT/HCPCS: 36415; 80053; 80197; 83735; 84100; 85025

== ENCOUNTER → 2024-08-03 09:42 | Outpatient (CLI) | payer MEDICARE, SELFPAY ==
[2021-05-08 11:15] VITALS: BMI 28.8
[2024-08-03 11:04] LABS: Appearance Urine UA CLEAR; Bilirubin Urine UA NEGATIVE (NEGATIVE); Color Urine UA YELLOW; Glucose Urine UA NEGATIVE (Negative); Ketones Urine UA NEGATIVE (NEGATIVE); Leukocyte Esterase Urine UA NEGATIVE (NEGATIVE); Nitrite Urine UA NEGATIVE (Negative); Occult Blood Urine UA NEGATIVE (Negative); Protein Urine UA NEGATIVE (Negative); Urobilinogen Urine UA 0.2 E.U./dL (0.2); pH Urine UA 6.5 (4.5-8.0)
[2024-08-03 11:36] LABS: Bacteria Urine Occasional (0-1); Culture Indicated Urine Cult Not Indicated; RBC Urine 0-1/HPF (0-5/HPF); Squamous Epithelial Cell Urine 0-1 /HPF (0-5/HPF); Urine Volume 10mL (spun); WBC Urine 0-1/HPF (0-5/HPF)
[2024-08-03 11:44] LABS: Protein (Total) Urine Random 17 mg/dL (0-12); Protein Creatinine Ratio Urine 0.29 GRAM/24H
== END ==
PROVIDERS: PCP Family Medicine; Referring Provider Internal Medicine Nephrology; Visit Provider Internal Medicine Nephrology
DX: Z48.298 Encounter for aftercare following other organ transplant (principal); T86.90 Unspecified complication of unspecified transplanted organ and tissue; E83.40 Disorders of magnesium metabolism, unspecified; N39.0 Urinary tract infection, site not specified; Z94.0 Kidney transplant status
CPT/HCPCS: 81001; 82570; 84156

== ENCOUNTER → 2024-08-09 09:40 | Outpatient (CLI) | payer MEDICARE, SELFPAY ==
[2021-05-08 11:15] VITALS: BMI 28.8
[2024-08-09 10:56] LABS: Add Manual Diff / Slide Review NO; Basophils Absolute Auto 0 /uL (0-100); Basophils Percent Auto 0.5 % (0-2); Eosinophils Absolute Auto 0 /uL (0-450); Eosinophils Percent Auto 0.6 % (2-4); Hematocrit 34.9 % (41-53); Hemoglobin 11.5 g/dL (13.5-17.5); Lymphocytes Absolute Auto 700 /uL (1100-4500); Lymphocytes Percent Auto 15.1 % (25-40); Mean Corpuscular Hemoglobin 32.9 PG (26-34); Mean Corpuscular Volume 99.5 fL (80-100); Monocytes Absolute Auto 200 /uL (0-900); Monocytes Percent Auto 5.6 % (3-14); Neutrophils Absolute Auto 3400 /uL (1500-7000); Neutrophils Percent Auto 78.2 % (50-75); Platelet Count 256 X10^3/uL (150-400); Red Blood Cell Count 3.51 X10^6/uL (4.5-5.9); Red Cell Distribution Width 18.6 % (11.6-14.8); White Blood Cell Count 4.4 X10^3/uL (4.5-11.0)
[2024-08-09 11:10] LABS: Alanine Aminotransferase 24 IU/L (<50); Albumin 3.8 g/dL (3.5-5.0); Albumin Globulin Ratio 1.5 (1.0-2.8); Alkaline Phosphatase 107 U/L (38-126); Aspartate Aminotransferase 27 IU/L (17-59); BUN Creatinine Ratio 29.3 (6-22); Bilirubin Total 0.4 mg/dL (0.2-1.3); Blood Urea Nitrogen 34 mg/dL (9-20); Calcium 9.4 mg/dL (8.4-10.2); Carbon Dioxide 24 mmol/L (22-32); Chloride 105 mmol/L (98-107); Estimated Glomerular Filt Rate > 60 mL/min (>60); Globulin 2.6 g/dL (1.7-4.1); Glucose 108 mg/dL (80-110); HEMOLYSIS < 15 (0-50); Magnesium 1.8 mg/dL (1.6-2.3); Sodium 134 mmol/L (137-145); Total Protein 6.4 g/dL (6.3-8.2)
[2024-08-09 11:13] LABS: Potassium 5.7 mmol/L (3.4-5.1)
[2024-08-09 11:19] LABS: Creatinine Urine Random 44.67 mg/dL; Protein (Total) Urine Random 7 mg/dL (0-12); Protein Creatinine Ratio Urine 0.15 GRAM/24H
[2024-08-09 17:04] LABS: Appearance Urine UA CLEAR; Bilirubin Urine UA NEGATIVE (NEGATIVE); Color Urine UA YELLOW; Glucose Urine UA NEGATIVE (Negative); Ketones Urine UA NEGATIVE (NEGATIVE); Leukocyte Esterase Urine UA TRACE (NEGATIVE); Nitrite Urine UA NEGATIVE (Negative); Occult Blood Urine UA NEGATIVE (Negative); Protein Urine UA NEGATIVE (Negative); Urobilinogen Urine UA 0.2 E.U./dL (0.2); pH Urine UA 5.5 (4.5-8.0)
[2024-08-09 18:02] LABS: Bacteria Urine Occasional (0-1); Urine Volume 10mL (spun); WBC Urine 5-10/HPF (0-5/HPF)
[2024-08-09 18:03] LABS: Squamous Epithelial Cell Urine 1-5 /HPF (0-5/HPF)
[2024-08-09 19:41] LABS: RBC Urine None Seen (0-5/HPF)
== END ==
PROVIDERS: PCP Family Medicine; Referring Provider Internal Medicine Nephrology; Visit Provider Internal Medicine Nephrology
DX: Z94.0 Kidney transplant status (principal); Z48.298 Encounter for aftercare following other organ transplant; T86.90 Unspecified complication of unspecified transplanted organ and tissue; E83.40 Disorders of magnesium metabolism, unspecified; N39.0 Urinary tract infection, site not specified
CPT/HCPCS: 36415; 80053; 80197; 81001; 82570; 83735; 84100; 84156; 85025

== ENCOUNTER → 2024-08-23 11:21 | Outpatient (CLI) | payer MEDICARE, SELFPAY ==
[2021-05-08 11:15] VITALS: BMI 28.8
[2024-08-23 12:12] LABS: Add Manual Diff / Slide Review NO; Basophils Absolute Auto 100 /uL (0-100); Basophils Percent Auto 1.4 % (0-2); Eosinophils Absolute Auto 0 /uL (0-450); Eosinophils Percent Auto 0.7 % (2-4); Hematocrit 36.1 % (41-53); Lymphocytes Absolute Auto 600 /uL (1100-4500); Lymphocytes Percent Auto 14.4 % (25-40); Mean Corpuscular HGB Conc 33.3 % (30-36); Mean Corpuscular Hemoglobin 33.3 PG (26-34); Mean Corpuscular Volume 99.9 fL (80-100); Monocytes Absolute Auto 300 /uL (0-900); Neutrophils Absolute Auto 3400 /uL (1500-7000); Neutrophils Percent Auto 76.5 % (50-75); Platelet Count 216 X10^3/uL (150-400); Red Blood Cell Count 3.61 X10^6/uL (4.5-5.9); Red Cell Distribution Width 17.5 % (11.6-14.8); White Blood Cell Count 4.4 X10^3/uL (4.5-11.0)
[2024-08-23 12:54] LABS: Appearance Urine UA CLEAR; Bilirubin Urine UA NEGATIVE (NEGATIVE); Color Urine UA YELLOW; Glucose Urine UA NEGATIVE (Negative); Ketones Urine UA NEGATIVE (NEGATIVE); Leukocyte Esterase Urine UA 1+ (NEGATIVE); Nitrite Urine UA NEGATIVE (Negative); Occult Blood Urine UA NEGATIVE (Negative); Protein Urine UA NEGATIVE (Negative); Urobilinogen Urine UA 0.2 E.U./dL (0.2)
[2024-08-23 12:58] LABS: Urine Volume 10mL (spun)
[2024-08-23 12:59] LABS: Bacteria Urine None Seen; Culture Indicated Urine Specimen Cultured; RBC Urine None Seen (0-5/HPF); Squamous Epithelial Cell Urine None Seen (0-5/HPF); WBC Urine 5-10/HPF (0-5/HPF)
[2024-08-23 13:09] LABS: Alanine Aminotransferase 25 IU/L (<50); Albumin 3.7 g/dL (3.5-5.0); Albumin Globulin Ratio 1.5 (1.0-2.8); Alkaline Phosphatase 95 U/L (38-126); Aspartate Aminotransferase 29 IU/L (17-59); BUN Creatinine Ratio 24.8 (6-22); Bilirubin Total 0.4 mg/dL (0.2-1.3); Blood Urea Nitrogen 30 mg/dL (9-20); Calcium 9.2 mg/dL (8.4-10.2); Carbon Dioxide 24 mmol/L (22-32); Chloride 106 mmol/L (98-107); Estimated Glomerular Filt Rate 58 mL/min (>60); Globulin 2.5 g/dL (1.7-4.1); Glucose 105 mg/dL (80-110); HEMOLYSIS < 15 (0-50); Magnesium 1.7 mg/dL (1.6-2.3); Phosphorous 3.9 mg/dL (2.3-3.7); Sodium 135 mmol/L (137-145); Total Protein 6.2 g/dL (6.3-8.2)
[2024-08-23 14:21] LABS: Creatinine Urine Random 76.01 mg/dL; Protein (Total) Urine Random 9 mg/dL (0-12); Protein Creatinine Ratio Urine 0.11 GRAM/24H
[2024-08-24 09:36] LABS: Tacrolimus 8.1 ng/mL (2.0-20.0)
== END ==
LOC: LAB 11:22
PROVIDERS: PCP Family Medicine; Referring Provider Internal Medicine Nephrology; Visit Provider Internal Medicine Nephrology
DX: Z94.0 Kidney transplant status (principal); Z48.298 Encounter for aftercare following other organ transplant; T86.90 Unspecified complication of unspecified transplanted organ and tissue; E83.40 Disorders of magnesium metabolism, unspecified
CPT/HCPCS: 36415; 80053; 80197; 81001; 82570; 83735; 84100; 84156; 85025; 87086

== ENCOUNTER → 2024-08-30 09:32 | Outpatient (CLI) | payer MEDICARE, SELFPAY ==
[2021-05-08 11:15] VITALS: BMI 28.8
[2024-08-30 10:36] LABS: Appearance Urine UA CLEAR; Bilirubin Urine UA NEGATIVE (NEGATIVE); Color Urine UA YELLOW; Glucose Urine UA NEGATIVE (Negative); Ketones Urine UA NEGATIVE (NEGATIVE); Leukocyte Esterase Urine UA NEGATIVE (NEGATIVE); Nitrite Urine UA NEGATIVE (Negative); Occult Blood Urine UA NEGATIVE (Negative); Protein Urine UA NEGATIVE (Negative); Specific Gravity Urine UA 1.015 (1.000-1.035); Urobilinogen Urine UA 0.2 E.U./dL (0.2); pH Urine UA 5.5 (4.5-8.0)
[2024-08-30 10:43] LABS: Urine Volume 10mL (spun)
[2024-08-30 10:45] LABS: Bacteria Urine None Seen; Culture Indicated Urine Cult Not Indicated; RBC Urine None Seen (0-5/HPF); Squamous Epithelial Cell Urine None Seen (0-5/HPF); WBC Urine None Seen (0-5/HPF)
[2024-08-30 10:49] LABS: Add Manual Diff / Slide Review YES; Hematocrit 38.2 % (41-53); Hemoglobin 12.6 g/dL (13.5-17.5); Mean Corpuscular Hemoglobin 33.2 PG (26-34); Mean Corpuscular Volume 100.4 fL (80-100); Platelet Count 204 X10^3/uL (150-400); White Blood Cell Count 4.6 X10^3/uL (4.5-11.0)
[2024-08-30 10:53] LABS: Creatinine Urine Random 60.17 mg/dL; Protein (Total) Urine Random 6 mg/dL (0-12); Protein Creatinine Ratio Urine 0.09 GRAM/24H
[2024-08-30 11:03] LABS: Alanine Aminotransferase 28 IU/L (<50); Albumin Globulin Ratio 1.7 (1.0-2.8); Alkaline Phosphatase 106 U/L (38-126); Aspartate Aminotransferase 29 IU/L (17-59); BUN Creatinine Ratio 27.7 (6-22); Bilirubin Total 0.3 mg/dL (0.2-1.3); Blood Urea Nitrogen 36 mg/dL (9-20); Calcium 9.4 mg/dL (8.4-10.2); Carbon Dioxide 24 mmol/L (22-32); Chloride 105 mmol/L (98-107); Estimated Glomerular Filt Rate 53 mL/min (>60); Globulin 2.3 g/dL (1.7-4.1); Glucose 101 mg/dL (80-110); HEMOLYSIS < 15 (0-50); Magnesium 1.7 mg/dL (1.6-2.3); Phosphorous 3.9 mg/dL (2.3-3.7); Potassium 4.9 mmol/L (3.4-5.1); Sodium 135 mmol/L (137-145); Total Protein 6.3 g/dL (6.3-8.2)
[2024-08-30 11:04] LABS: Neutrophils Absolute Manual 3496 /uL (3000-5900); Total Cells Counted 100
[2024-08-30 11:05] LABS: Anisocytosis 1+; Poikilocytosis 1+
[2024-08-31 06:36] LABS: Tacrolimus 7.7 ng/mL (2.0-20.0)
== END ==
PROVIDERS: PCP Internal Medicine Nephrology; Referring Provider Internal Medicine Nephrology; Visit Provider Internal Medicine Nephrology
DX: Z48.298 Encounter for aftercare following other organ transplant (principal); T86.90 Unspecified complication of unspecified transplanted organ and tissue; E83.40 Disorders of magnesium metabolism, unspecified; N39.0 Urinary tract infection, site not specified; Z94.0 Kidney transplant status
CPT/HCPCS: 36415; 80053; 80197; 81001; 82570; 83735; 84100; 84156; 85007; 85025

== ENCOUNTER → 2024-09-06 10:13 | Outpatient (CLI) | payer MEDICARE, SELFPAY ==
[2021-05-08 11:15] VITALS: BMI 28.8
[2024-09-06 10:53] LABS: Add Manual Diff / Slide Review NO; Basophils Absolute Auto 0 /uL (0-100); Basophils Percent Auto 0.9 % (0-2); Eosinophils Absolute Auto 100 /uL (0-450); Eosinophils Percent Auto 1.1 % (2-4); Hematocrit 39.6 % (41-53); Hemoglobin 13.2 g/dL (13.5-17.5); Lymphocytes Absolute Auto 900 /uL (1100-4500); Lymphocytes Percent Auto 18.8 % (25-40); Mean Corpuscular HGB Conc 33.4 % (30-36); Mean Corpuscular Hemoglobin 33.6 PG (26-34); Mean Corpuscular Volume 100.9 fL (80-100); Monocytes Absolute Auto 300 /uL (0-900); Monocytes Percent Auto 6.5 % (3-14); Neutrophils Absolute Auto 3400 /uL (1500-7000); Neutrophils Percent Auto 72.7 % (50-75); Platelet Count 201 X10^3/uL (150-400); Red Blood Cell Count 3.93 X10^6/uL (4.5-5.9); Red Cell Distribution Width 16.3 % (11.6-14.8); White Blood Cell Count 4.7 X10^3/uL (4.5-11.0)
[2024-09-06 11:03] LABS: Appearance Urine UA CLEAR; Bilirubin Urine UA NEGATIVE (NEGATIVE); Color Urine UA YELLOW; Glucose Urine UA NEGATIVE (Negative); Ketones Urine UA NEGATIVE (NEGATIVE); Leukocyte Esterase Urine UA NEGATIVE (NEGATIVE); Nitrite Urine UA NEGATIVE (Negative); Occult Blood Urine UA NEGATIVE (Negative); Protein Urine UA NEGATIVE (Negative); Specific Gravity Urine UA 1.015 (1.000-1.035); Urobilinogen Urine UA 0.2 E.U./dL (0.2); pH Urine UA 5.5 (4.5-8.0)
[2024-09-06 11:08] LABS: Alanine Aminotransferase 31 IU/L (<50); Albumin 4.1 g/dL (3.5-5.0); Albumin Globulin Ratio 1.6 (1.0-2.8); Alkaline Phosphatase 102 U/L (38-126); Aspartate Aminotransferase 32 IU/L (17-59); BUN Creatinine Ratio 23.2 (6-22); Bilirubin Total 0.5 mg/dL (0.2-1.3); Blood Urea Nitrogen 29 mg/dL (9-20); Calcium 9.5 mg/dL (8.4-10.2); Carbon Dioxide 25 mmol/L (22-32); Chloride 105 mmol/L (98-107); Estimated Glomerular Filt Rate 56 mL/min (>60); Globulin 2.6 g/dL (1.7-4.1); Glucose 106 mg/dL (80-110); HEMOLYSIS < 15 (0-50); Magnesium 1.7 mg/dL (1.6-2.3); Phosphorous 3.7 mg/dL (2.3-3.7); Potassium 4.9 mmol/L (3.4-5.1); Sodium 135 mmol/L (137-145); Total Protein 6.7 g/dL (6.3-8.2)
[2024-09-06 11:09] LABS: Bacteria Urine None Seen; Culture Indicated Urine Cult Not Indicated; RBC Urine None Seen (0-5/HPF); Squamous Epithelial Cell Urine None Seen (0-5/HPF); Urine Volume 10mL (spun); WBC Urine None Seen (0-5/HPF)
[2024-09-06 11:19] LABS: Creatinine Urine Random 62.02 mg/dL; Protein (Total) Urine Random 6 mg/dL (0-12); Protein Creatinine Ratio Urine 0.09 GRAM/24H
[2024-09-07 07:51] LABS: Tacrolimus 5.4 ng/mL (2.0-20.0)
== END ==
PROVIDERS: PCP Internal Medicine Nephrology; Referring Provider Internal Medicine Nephrology; Visit Provider Internal Medicine Nephrology
DX: Z48.298 Encounter for aftercare following other organ transplant (principal); Z94.0 Kidney transplant status; T86.90 Unspecified complication of unspecified transplanted organ and tissue; N39.0 Urinary tract infection, site not specified; E83.40 Disorders of magnesium metabolism, unspecified
CPT/HCPCS: 36415; 80053; 80197; 81001; 82570; 83735; 84100; 84156; 85025

== ENCOUNTER → 2024-09-13 10:49 | Outpatient (CLI) | payer MEDICARE, SELFPAY ==
[2021-05-08 11:15] VITALS: BMI 28.8
[2024-09-13 11:27] LABS: Add Manual Diff / Slide Review NO; Basophils Absolute Auto 100 /uL (0-100); Eosinophils Absolute Auto 0 /uL (0-450); Eosinophils Percent Auto 0.5 % (2-4); Hematocrit 37.4 % (41-53); Hemoglobin 12.4 g/dL (13.5-17.5); Lymphocytes Absolute Auto 600 /uL (1100-4500); Lymphocytes Percent Auto 14.2 % (25-40); Mean Corpuscular HGB Conc 33.2 % (30-36); Mean Corpuscular Hemoglobin 33.5 PG (26-34); Monocytes Absolute Auto 200 /uL (0-900); Neutrophils Absolute Auto 3400 /uL (1500-7000); Neutrophils Percent Auto 78.3 % (50-75); Platelet Count 192 X10^3/uL (150-400); Red Cell Distribution Width 16.3 % (11.6-14.8); White Blood Cell Count 4.3 X10^3/uL (4.5-11.0)
[2024-09-13 11:39] LABS: Appearance Urine UA CLEAR; Bilirubin Urine UA NEGATIVE (NEGATIVE); Color Urine UA YELLOW; Glucose Urine UA NEGATIVE (Negative); Ketones Urine UA NEGATIVE (NEGATIVE); Leukocyte Esterase Urine UA NEGATIVE (NEGATIVE); Nitrite Urine UA NEGATIVE (Negative); Occult Blood Urine UA NEGATIVE (Negative); Protein Urine UA NEGATIVE (Negative); Specific Gravity Urine UA 1.015 (1.000-1.035); Urobilinogen Urine UA 0.2 E.U./dL (0.2); pH Urine UA 5.5 (4.5-8.0)
[2024-09-13 11:51] LABS: Bacteria Urine None Seen; RBC Urine None Seen (0-5/HPF); Squamous Epithelial Cell Urine None Seen (0-5/HPF); Urine Volume 10mL (spun); WBC Urine None Seen (0-5/HPF)
[2024-09-13 11:52] LABS: Culture Indicated Urine Cult Not Indicated
[2024-09-13 11:55] LABS: Creatinine Urine Random 61.59 mg/dL; Protein (Total) Urine Random 7 mg/dL (0-12); Protein Creatinine Ratio Urine 0.11 GRAM/24H
[2024-09-13 11:59] LABS: Alanine Aminotransferase 34 IU/L (<50); Albumin 3.6 g/dL (3.5-5.0); Albumin Globulin Ratio 1.6 (1.0-2.8); Alkaline Phosphatase 97 U/L (38-126); Aspartate Aminotransferase 33 IU/L (17-59); BUN Creatinine Ratio 22.3 (6-22); Bilirubin Total 0.3 mg/dL (0.2-1.3); Blood Urea Nitrogen 23 mg/dL (9-20); Calcium 8.9 mg/dL (8.4-10.2); Carbon Dioxide 27 mmol/L (22-32); Chloride 104 mmol/L (98-107); Estimated Glomerular Filt Rate > 60 mL/min (>60); Globulin 2.3 g/dL (1.7-4.1); Glucose 97 mg/dL (80-110); HEMOLYSIS < 15 (0-50); Magnesium 1.8 mg/dL (1.6-2.3); Phosphorous 3.3 mg/dL (2.3-3.7); Potassium 4.2 mmol/L (3.4-5.1); Sodium 136 mmol/L (137-145); Total Protein 5.9 g/dL (6.3-8.2)
[2024-09-14 07:36] LABS: Tacrolimus 2.1 ng/mL (2.0-20.0)
== END ==
PROVIDERS: PCP Family Medicine; Referring Provider Internal Medicine Nephrology; Visit Provider Internal Medicine Nephrology
DX: T86.90 Unspecified complication of unspecified transplanted organ and tissue (principal); Z94.0 Kidney transplant status; Z48.298 Encounter for aftercare following other organ transplant; E83.40 Disorders of magnesium metabolism, unspecified
CPT/HCPCS: 36415; 80053; 80197; 81001; 82570; 83735; 84100; 84156; 85025

== ENCOUNTER → 2024-09-20 08:53 | Outpatient (CLI) | payer MEDICARE, SELFPAY ==
[2021-05-08 11:15] VITALS: BMI 28.8
[2024-09-20 09:38] LABS: Appearance Urine UA CLEAR; Bilirubin Urine UA NEGATIVE (NEGATIVE); Color Urine UA YELLOW; Glucose Urine UA NEGATIVE (Negative); Ketones Urine UA NEGATIVE (NEGATIVE); Leukocyte Esterase Urine UA NEGATIVE (NEGATIVE); Nitrite Urine UA NEGATIVE (Negative); Occult Blood Urine UA NEGATIVE (Negative); Protein Urine UA NEGATIVE (Negative); Specific Gravity Urine UA 1.015 (1.000-1.035); Urobilinogen Urine UA 0.2 E.U./dL (0.2); pH Urine UA 5.5 (4.5-8.0)
[2024-09-20 09:43] LABS: Add Manual Diff / Slide Review NO; Basophils Absolute Auto 100 /uL (0-100); Eosinophils Absolute Auto 0 /uL (0-450); Eosinophils Percent Auto 0.5 % (2-4); Hematocrit 37.1 % (41-53); Hemoglobin 12.3 g/dL (13.5-17.5); Lymphocytes Absolute Auto 600 /uL (1100-4500); Mean Corpuscular HGB Conc 33.3 % (30-36); Mean Corpuscular Hemoglobin 33.6 PG (26-34); Mean Corpuscular Volume 101.2 fL (80-100); Monocytes Absolute Auto 500 /uL (0-900); Monocytes Percent Auto 8.1 % (3-14); Neutrophils Absolute Auto 5500 /uL (1500-7000); Neutrophils Percent Auto 81.4 % (50-75); Platelet Count 200 X10^3/uL (150-400); Red Blood Cell Count 3.66 X10^6/uL (4.5-5.9); Red Cell Distribution Width 15.9 % (11.6-14.8); White Blood Cell Count 6.8 X10^3/uL (4.5-11.0)
[2024-09-20 09:49] LABS: Urine Volume 10mL (spun)
[2024-09-20 09:50] LABS: Bacteria Urine None Seen; Culture Indicated Urine Cult Not Indicated; RBC Urine None Seen (0-5/HPF); Squamous Epithelial Cell Urine None Seen (0-5/HPF); WBC Urine None Seen (0-5/HPF)
[2024-09-20 10:02] LABS: Creatinine Urine Random 80.71 mg/dL; Protein (Total) Urine Random 9 mg/dL (0-12); Protein Creatinine Ratio Urine 0.11 GRAM/24H
[2024-09-20 10:02] LABS: Alanine Aminotransferase 27 IU/L (<50); Albumin 3.7 g/dL (3.5-5.0); Albumin Globulin Ratio 1.5 (1.0-2.8); Alkaline Phosphatase 86 U/L (38-126); Aspartate Aminotransferase 30 IU/L (17-59); Bilirubin Total 0.4 mg/dL (0.2-1.3); Blood Urea Nitrogen 20 mg/dL (9-20); Calcium 8.8 mg/dL (8.4-10.2); Carbon Dioxide 26 mmol/L (22-32); Chloride 103 mmol/L (98-107); Estimated Glomerular Filt Rate > 60 mL/min (>60); Globulin 2.5 g/dL (1.7-4.1); Glucose 107 mg/dL (80-110); HEMOLYSIS < 15 (0-50); Magnesium 1.8 mg/dL (1.6-2.3); Phosphorous 3.2 mg/dL (2.3-3.7); Potassium 4.1 mmol/L (3.4-5.1); Sodium 134 mmol/L (137-145); Total Protein 6.2 g/dL (6.3-8.2)
[2024-09-21 09:29] LABS: Tacrolimus 3.4 ng/mL (5.0-20.0)
== END ==
PROVIDERS: PCP Family Medicine; Referring Provider Internal Medicine Nephrology; Visit Provider Internal Medicine Nephrology
DX: Z94.0 Kidney transplant status (principal); Z48.298 Encounter for aftercare following other organ transplant; T86.90 Unspecified complication of unspecified transplanted organ and tissue; N39.0 Urinary tract infection, site not specified; E83.40 Disorders of magnesium metabolism, unspecified
CPT/HCPCS: 36415; 80053; 80197; 81001; 82570; 83735; 84100; 84156; 85025

== ENCOUNTER → 2024-09-27 09:43 | Outpatient (CLI) | payer MEDICARE, SELFPAY ==
[2021-05-08 11:15] VITALS: BMI 28.8
[2024-09-27 10:32] LABS: Hematocrit 35.2 % (41-53); Mean Corpuscular HGB Conc 34.1 % (30-36); Mean Corpuscular Hemoglobin 33.9 PG (26-34); Mean Corpuscular Volume 99.3 fL (80-100); Platelet Count 320 X10^3/uL (150-400); Red Blood Cell Count 3.55 X10^6/uL (4.5-5.9); Red Cell Distribution Width 14.8 % (11.6-14.8)
[2024-09-27 10:34] LABS: Add Manual Diff / Slide Review YES
[2024-09-27 10:48] LABS: Alanine Aminotransferase 34 IU/L (<50); Albumin 3.7 g/dL (3.5-5.0); Albumin Globulin Ratio 1.4 (1.0-2.8); Alkaline Phosphatase 105 U/L (38-126); Aspartate Aminotransferase 32 IU/L (17-59); BUN Creatinine Ratio 18.9 (6-22); Bilirubin Total 0.4 mg/dL (0.2-1.3); Blood Urea Nitrogen 20 mg/dL (9-20); Calcium 9.1 mg/dL (8.4-10.2); Carbon Dioxide 25 mmol/L (22-32); Chloride 101 mmol/L (98-107); Estimated Glomerular Filt Rate > 60 mL/min (>60); Globulin 2.7 g/dL (1.7-4.1); Glucose 105 mg/dL (80-110); HEMOLYSIS < 15 (0-50); Magnesium 1.7 mg/dL (1.6-2.3); Phosphorous 3.6 mg/dL (2.3-3.7); Potassium 4.6 mmol/L (3.4-5.1); Sodium 133 mmol/L (137-145); Total Protein 6.4 g/dL (6.3-8.2)
[2024-09-27 10:52] LABS: Appearance Urine UA CLEAR; Bilirubin Urine UA NEGATIVE (NEGATIVE); Color Urine UA YELLOW; Glucose Urine UA NEGATIVE (Negative); Ketones Urine UA NEGATIVE (NEGATIVE); Leukocyte Esterase Urine UA NEGATIVE (NEGATIVE); Nitrite Urine UA NEGATIVE (Negative); Occult Blood Urine UA NEGATIVE (Negative); Protein Urine UA NEGATIVE (Negative); Urobilinogen Urine UA 0.2 E.U./dL (0.2)
[2024-09-27 10:54] LABS: Urine Volume 10mL (spun)
[2024-09-27 10:55] LABS: Bacteria Urine None Seen; Culture Indicated Urine Cult Not Indicated; RBC Urine None Seen (0-5/HPF); Squamous Epithelial Cell Urine None Seen (0-5/HPF); WBC Urine None Seen (0-5/HPF)
[2024-09-27 11:21] LABS: Neutrophils Absolute Manual 3800 /uL (3000-5900); Total Cells Counted 100
[2024-09-27 11:22] LABS: RBC Morphology Normal Morphology
[2024-09-27 11:40] LABS: Creatinine Urine Random 67.26 mg/dL; Protein (Total) Urine Random 7 mg/dL (0-12)
[2024-09-28 08:41] LABS: Tacrolimus 7.3 ng/mL (5.0-20.0)
== END ==
PROVIDERS: PCP Family Medicine; Referring Provider Internal Medicine Nephrology; Visit Provider Internal Medicine Nephrology
DX: Z94.0 Kidney transplant status (principal); Z48.298 Encounter for aftercare following other organ transplant; T86.90 Unspecified complication of unspecified transplanted organ and tissue; E83.40 Disorders of magnesium metabolism, unspecified; N39.0 Urinary tract infection, site not specified
CPT/HCPCS: 36415; 80053; 80197; 81001; 82570; 83735; 84100; 84156; 85007; 85025

== ENCOUNTER → 2024-10-11 09:28 | Outpatient (CLI) | payer MEDICARE, SELFPAY ==
[2021-05-08 11:15] VITALS: BMI 28.8
[2024-10-11 10:01] LABS: Appearance Urine UA CLEAR; Bilirubin Urine UA NEGATIVE (NEGATIVE); Color Urine UA YELLOW; Glucose Urine UA NEGATIVE (Negative); Ketones Urine UA NEGATIVE (NEGATIVE); Leukocyte Esterase Urine UA TRACE (NEGATIVE); Nitrite Urine UA NEGATIVE (Negative); Occult Blood Urine UA NEGATIVE (Negative); Protein Urine UA NEGATIVE (Negative); Specific Gravity Urine UA 1.015 (1.000-1.035); Urobilinogen Urine UA 0.2 E.U./dL (0.2)
[2024-10-11 10:05] LABS: Urine Volume 10mL (spun)
[2024-10-11 10:06] LABS: Bacteria Urine None Seen; Culture Indicated Urine Specimen Cultured; RBC Urine None Seen (0-5/HPF); Squamous Epithelial Cell Urine None Seen (0-5/HPF); WBC Urine 1-5/HPF (0-5/HPF)
[2024-10-11 10:13] LABS: Alanine Aminotransferase 30 IU/L (<50); Albumin 3.9 g/dL (3.5-5.0); Albumin Globulin Ratio 1.4 (1.0-2.8); Alkaline Phosphatase 107 U/L (38-126); Aspartate Aminotransferase 32 IU/L (17-59); BUN Creatinine Ratio 25.5 (6-22); Bilirubin Total 0.5 mg/dL (0.2-1.3); Blood Urea Nitrogen 25 mg/dL (9-20); Carbon Dioxide 25 mmol/L (22-32); Chloride 104 mmol/L (98-107); Estimated Glomerular Filt Rate > 60 mL/min (>60); Globulin 2.7 g/dL (1.7-4.1); Glucose 99 mg/dL (80-110); HEMOLYSIS < 15 (0-50); Magnesium 1.9 mg/dL (1.6-2.3); Phosphorous 3.8 mg/dL (2.3-3.7); Potassium 4.7 mmol/L (3.4-5.1); Sodium 136 mmol/L (137-145); Total Protein 6.6 g/dL (6.3-8.2)
[2024-10-11 10:33] LABS: Creatinine Urine Random 50.89 mg/dL; Protein (Total) Urine Random 8 mg/dL (0-12); Protein Creatinine Ratio Urine 0.15 GRAM/24H
[2024-10-11 10:53] LABS: Add Manual Diff / Slide Review NO; Basophils Absolute Auto 100 /uL (0-100); Basophils Percent Auto 1.1 % (0-2); Eosinophils Absolute Auto 100 /uL (0-450); Eosinophils Percent Auto 1.2 % (2-4); Hemoglobin 12.4 g/dL (13.5-17.5); Lymphocytes Absolute Auto 900 /uL (1100-4500); Lymphocytes Percent Auto 17.2 % (25-40); Mean Corpuscular HGB Conc 33.7 % (30-36); Mean Corpuscular Hemoglobin 33.5 PG (26-34); Mean Corpuscular Volume 99.5 fL (80-100); Monocytes Absolute Auto 800 /uL (0-900); Monocytes Percent Auto 16.7 % (3-14); Neutrophils Absolute Auto 3200 /uL (1500-7000); Neutrophils Percent Auto 63.8 % (50-75); Platelet Count 271 X10^3/uL (150-400); Red Blood Cell Count 3.72 X10^6/uL (4.5-5.9); Red Cell Distribution Width 14.7 % (11.6-14.8)
[2024-10-12 04:36] LABS: Tacrolimus 8.2 ng/mL (5.0-20.0)
== END ==
LOC: LAB 09:29
PROVIDERS: PCP Family Medicine; Referring Provider Internal Medicine Nephrology; Visit Provider Internal Medicine Nephrology
DX: T86.90 Unspecified complication of unspecified transplanted organ and tissue (principal); Z94.0 Kidney transplant status; Z48.298 Encounter for aftercare following other organ transplant; E83.40 Disorders of magnesium metabolism, unspecified
CPT/HCPCS: 36415; 80053; 80197; 81001; 82570; 83735; 84100; 84156; 85025; 87086

== ENCOUNTER → 2024-10-25 09:07 | Outpatient (CLI) | payer MEDICARE, SELFPAY ==
[2021-05-08 11:15] VITALS: BMI 28.8
[2024-10-25 10:14] LABS: Add Manual Diff / Slide Review NO; Basophils Absolute Auto 0 /uL (0-100); Basophils Percent Auto 0.4 % (0-2); Eosinophils Absolute Auto 100 /uL (0-450); Eosinophils Percent Auto 2.4 % (2-4); Hemoglobin 12.7 g/dL (13.5-17.5); Lymphocytes Absolute Auto 900 /uL (1100-4500); Lymphocytes Percent Auto 16.4 % (25-40); Mean Corpuscular HGB Conc 33.3 % (30-36); Monocytes Absolute Auto 700 /uL (0-900); Monocytes Percent Auto 13.4 % (3-14); Neutrophils Absolute Auto 3500 /uL (1500-7000); Neutrophils Percent Auto 67.4 % (50-75); Platelet Count 187 X10^3/uL (150-400); Red Blood Cell Count 3.84 X10^6/uL (4.5-5.9); Red Cell Distribution Width 14.2 % (11.6-14.8); White Blood Cell Count 5.2 X10^3/uL (4.5-11.0)
[2024-10-25 10:17] LABS: Appearance Urine UA CLEAR; Bilirubin Urine UA NEGATIVE (NEGATIVE); Color Urine UA YELLOW; Glucose Urine UA NEGATIVE (Negative); Ketones Urine UA NEGATIVE (NEGATIVE); Leukocyte Esterase Urine UA TRACE (NEGATIVE); Nitrite Urine UA NEGATIVE (Negative); Occult Blood Urine UA NEGATIVE (Negative); Protein Urine UA NEGATIVE (Negative); Urobilinogen Urine UA 0.2 E.U./dL (0.2)
[2024-10-25 10:18] LABS: Urine Volume 10mL (spun)
[2024-10-25 10:22] LABS: Bacteria Urine None Seen; Culture Indicated Urine Cult Not Indicated; RBC Urine None Seen (0-5/HPF); Squamous Epithelial Cell Urine None Seen (0-5/HPF); WBC Urine None Seen (0-5/HPF)
[2024-10-25 10:32] LABS: Creatinine Urine Random 84.99 mg/dL; Protein (Total) Urine Random 7 mg/dL (0-12); Protein Creatinine Ratio Urine 0.08 GRAM/24H
[2024-10-25 10:33] LABS: Alanine Aminotransferase 27 IU/L (<50); Albumin 3.7 g/dL (3.5-5.0); Albumin Globulin Ratio 1.5 (1.0-2.8); Alkaline Phosphatase 94 U/L (38-126); Aspartate Aminotransferase 32 IU/L (17-59); BUN Creatinine Ratio 24.5 (6-22); Bilirubin Total 0.5 mg/dL (0.2-1.3); Blood Urea Nitrogen 27 mg/dL (9-20); Calcium 8.8 mg/dL (8.4-10.2); Carbon Dioxide 27 mmol/L (22-32); Chloride 102 mmol/L (98-107); Estimated Glomerular Filt Rate > 60 mL/min (>60); Globulin 2.5 g/dL (1.7-4.1); Glucose 104 mg/dL (80-110); HEMOLYSIS < 15 (0-50); Magnesium 1.8 mg/dL (1.6-2.3); Potassium 4.6 mmol/L (3.4-5.1); Sodium 135 mmol/L (137-145); Total Protein 6.2 g/dL (6.3-8.2)
[2024-10-26 04:08] LABS: Tacrolimus 9.9 ng/mL (5.0-20.0)
== END ==
PROVIDERS: PCP Family Medicine; Referring Provider Internal Medicine Nephrology; Visit Provider Internal Medicine Nephrology
DX: Z48.298 Encounter for aftercare following other organ transplant (principal); T86.90 Unspecified complication of unspecified transplanted organ and tissue; E83.40 Disorders of magnesium metabolism, unspecified; N39.0 Urinary tract infection, site not specified; Z94.0 Kidney transplant status
CPT/HCPCS: 36415; 80053; 80197; 81001; 82570; 83735; 84100; 84156; 85025

== ENCOUNTER → 2024-11-01 08:38 | Outpatient (CLI) | payer MEDICARE, SELFPAY ==
[2021-05-08 11:15] VITALS: BMI 28.8
[2024-11-01 09:14] LABS: Appearance Urine UA CLEAR; Bilirubin Urine UA NEGATIVE (NEGATIVE); Color Urine UA YELLOW; Glucose Urine UA NEGATIVE (Negative); Ketones Urine UA NEGATIVE (NEGATIVE); Leukocyte Esterase Urine UA NEGATIVE (NEGATIVE); Nitrite Urine UA NEGATIVE (Negative); Occult Blood Urine UA TRACE-INTACT (Negative); Protein Urine UA NEGATIVE (Negative); Specific Gravity Urine UA 1.025 (1.000-1.035); Urobilinogen Urine UA 0.2 E.U./dL (0.2)
[2024-11-01 09:16] LABS: Add Manual Diff / Slide Review NO; Basophils Absolute Auto 100 /uL (0-100); Basophils Percent Auto 1.3 % (0-2); Eosinophils Absolute Auto 100 /uL (0-450); Eosinophils Percent Auto 2.7 % (2-4); Hematocrit 39.5 % (41-53); Hemoglobin 13.1 g/dL (13.5-17.5); Lymphocytes Absolute Auto 800 /uL (1100-4500); Lymphocytes Percent Auto 16.8 % (25-40); Mean Corpuscular HGB Conc 33.1 % (30-36); Mean Corpuscular Hemoglobin 32.9 PG (26-34); Mean Corpuscular Volume 99.4 fL (80-100); Monocytes Absolute Auto 600 /uL (0-900); Monocytes Percent Auto 12.7 % (3-14); Neutrophils Absolute Auto 3300 /uL (1500-7000); Neutrophils Percent Auto 66.5 % (50-75); Platelet Count 174 X10^3/uL (150-400); Red Blood Cell Count 3.97 X10^6/uL (4.5-5.9); Red Cell Distribution Width 13.8 % (11.6-14.8)
[2024-11-01 09:31] LABS: Urine Volume 10mL (spun)
[2024-11-01 09:32] LABS: Bacteria Urine None Seen; Culture Indicated Urine Cult Not Indicated; RBC Urine 0-1/HPF (0-5/HPF); Squamous Epithelial Cell Urine None Seen (0-5/HPF); WBC Urine None Seen (0-5/HPF)
[2024-11-01 09:41] LABS: Alanine Aminotransferase 24 IU/L (<50); Albumin Globulin Ratio 1.7 (1.0-2.8); Alkaline Phosphatase 88 U/L (38-126); Aspartate Aminotransferase 30 IU/L (17-59); BUN Creatinine Ratio 22.1 (6-22); Blood Urea Nitrogen 25 mg/dL (9-20); Calcium 9.1 mg/dL (8.4-10.2); Carbon Dioxide 27 mmol/L (22-32); Chloride 102 mmol/L (98-107); Estimated Glomerular Filt Rate > 60 mL/min (>60); Globulin 2.4 g/dL (1.7-4.1); Glucose 89 mg/dL (80-110); HEMOLYSIS < 15 (0-50); Magnesium 1.7 mg/dL (1.6-2.3); Phosphorous 3.4 mg/dL (2.3-3.7); Potassium 4.3 mmol/L (3.4-5.1); Sodium 136 mmol/L (137-145); Total Protein 6.4 g/dL (6.3-8.2)
[2024-11-02 04:10] LABS: Tacrolimus 5.3 ng/mL (5.0-20.0)
== END ==
LOC: LAB 08:40
PROVIDERS: PCP Family Medicine; Referring Provider Internal Medicine Nephrology; Visit Provider Internal Medicine Nephrology
DX: E83.40 Disorders of magnesium metabolism, unspecified (principal); Z94.0 Kidney transplant status; Z48.298 Encounter for aftercare following other organ transplant; T86.90 Unspecified complication of unspecified transplanted organ and tissue; N39.0 Urinary tract infection, site not specified
CPT/HCPCS: 36415; 80053; 80197; 81001; 83735; 84100; 85025

== ENCOUNTER → 2024-11-08 08:30 | Outpatient (CLI) | payer MEDICARE, SELFPAY ==
[2021-05-08 11:15] VITALS: BMI 28.8
[2024-11-08 09:01] LABS: Appearance Urine UA CLEAR; Bilirubin Urine UA NEGATIVE (NEGATIVE); Color Urine UA YELLOW; Glucose Urine UA NEGATIVE (Negative); Ketones Urine UA NEGATIVE (NEGATIVE); Leukocyte Esterase Urine UA NEGATIVE (NEGATIVE); Nitrite Urine UA NEGATIVE (Negative); Occult Blood Urine UA NEGATIVE (Negative); Protein Urine UA NEGATIVE (Negative); Urobilinogen Urine UA 0.2 E.U./dL (0.2)
[2024-11-08 09:03] LABS: Add Manual Diff / Slide Review NO; Basophils Absolute Auto 0 /uL (0-100); Basophils Percent Auto 0.4 % (0-2); Eosinophils Absolute Auto 100 /uL (0-450); Eosinophils Percent Auto 2.9 % (2-4); Hematocrit 36.8 % (41-53); Hemoglobin 12.4 g/dL (13.5-17.5); Lymphocytes Absolute Auto 1000 /uL (1100-4500); Lymphocytes Percent Auto 22.5 % (25-40); Mean Corpuscular HGB Conc 33.7 % (30-36); Mean Corpuscular Hemoglobin 33.4 PG (26-34); Monocytes Absolute Auto 600 /uL (0-900); Monocytes Percent Auto 12.9 % (3-14); Neutrophils Absolute Auto 2800 /uL (1500-7000); Neutrophils Percent Auto 61.3 % (50-75); Platelet Count 192 X10^3/uL (150-400); Red Blood Cell Count 3.71 X10^6/uL (4.5-5.9); Red Cell Distribution Width 13.9 % (11.6-14.8); White Blood Cell Count 4.6 X10^3/uL (4.5-11.0)
[2024-11-08 09:08] LABS: Creatinine Urine Random 65.75 mg/dL; Protein (Total) Urine Random 6 mg/dL (0-12); Protein Creatinine Ratio Urine 0.09 GRAM/24H; Urine Volume 10mL (spun)
[2024-11-08 09:09] LABS: Bacteria Urine None Seen; Culture Indicated Urine Cult Not Indicated; RBC Urine None Seen (0-5/HPF); Squamous Epithelial Cell Urine None Seen (0-5/HPF); WBC Urine None Seen (0-5/HPF)
[2024-11-08 09:24] LABS: Alanine Aminotransferase 26 IU/L (<50); Albumin 3.8 g/dL (3.5-5.0); Albumin Globulin Ratio 1.7 (1.0-2.8); Alkaline Phosphatase 85 U/L (38-126); Aspartate Aminotransferase 33 IU/L (17-59); BUN Creatinine Ratio 24.2 (6-22); Blood Urea Nitrogen 31 mg/dL (9-20); Calcium 8.6 mg/dL (8.4-10.2); Carbon Dioxide 23 mmol/L (22-32); Chloride 103 mmol/L (98-107); Estimated Glomerular Filt Rate 54 mL/min (>60); Globulin 2.2 g/dL (1.7-4.1); Glucose 94 mg/dL (80-110); HEMOLYSIS < 15 (0-50); Magnesium 1.9 mg/dL (1.6-2.3); Phosphorous 3.1 mg/dL (2.3-3.7); Potassium 4.5 mmol/L (3.4-5.1); Sodium 133 mmol/L (137-145)
[2024-11-09 03:39] LABS: Tacrolimus 9.2 ng/mL (5.0-20.0)
== END ==
PROVIDERS: PCP Family Medicine; Referring Provider Internal Medicine Nephrology; Visit Provider Internal Medicine Nephrology
DX: Z94.0 Kidney transplant status (principal); Z48.298 Encounter for aftercare following other organ transplant; T86.90 Unspecified complication of unspecified transplanted organ and tissue; E83.40 Disorders of magnesium metabolism, unspecified; N39.0 Urinary tract infection, site not specified
CPT/HCPCS: 36415; 80053; 80197; 81001; 82570; 83735; 84100; 84156; 85025

== ENCOUNTER → 2024-11-16 07:56 | Outpatient (CLI) | payer MEDICARE, OTHER, SELFPAY ==
[2021-05-08 11:15] VITALS: BMI 28.8
[2024-11-16 08:59] LABS: Appearance Urine UA CLEAR; Bilirubin Urine UA NEGATIVE (NEGATIVE); Color Urine UA YELLOW; Glucose Urine UA NEGATIVE (Negative); Ketones Urine UA NEGATIVE (NEGATIVE); Leukocyte Esterase Urine UA NEGATIVE (NEGATIVE); Nitrite Urine UA NEGATIVE (Negative); Occult Blood Urine UA NEGATIVE (Negative); Protein Urine UA NEGATIVE (Negative); Specific Gravity Urine UA 1.015 (1.000-1.035); Urobilinogen Urine UA 0.2 E.U./dL (0.2)
[2024-11-16 09:01] LABS: Add Manual Diff / Slide Review NO; Basophils Absolute Auto 0 /uL (0-100); Basophils Percent Auto 0.3 % (0-2); Eosinophils Absolute Auto 100 /uL (0-450); Eosinophils Percent Auto 2.5 % (2-4); Hematocrit 38.5 % (41-53); Hemoglobin 12.8 g/dL (13.5-17.5); Lymphocytes Absolute Auto 1000 /uL (1100-4500); Lymphocytes Percent Auto 23.3 % (25-40); Mean Corpuscular HGB Conc 33.3 % (30-36); Monocytes Absolute Auto 600 /uL (0-900); Monocytes Percent Auto 12.8 % (3-14); Neutrophils Absolute Auto 2700 /uL (1500-7000); Neutrophils Percent Auto 61.1 % (50-75); Platelet Count 193 X10^3/uL (150-400); Red Blood Cell Count 3.89 X10^6/uL (4.5-5.9); White Blood Cell Count 4.4 X10^3/uL (4.5-11.0)
[2024-11-16 09:07] LABS: RBC Urine None Seen (0-5/HPF); Urine Volume 10mL (spun)
[2024-11-16 09:08] LABS: Bacteria Urine Occasional (0-1); Culture Indicated Urine Cult Not Indicated; Squamous Epithelial Cell Urine 0-1 /HPF (0-5/HPF); WBC Urine 1-5/HPF (0-5/HPF)
[2024-11-16 09:20] LABS: Alanine Aminotransferase 27 IU/L (<50); Albumin Globulin Ratio 1.7 (1.0-2.8); Alkaline Phosphatase 95 U/L (38-126); Aspartate Aminotransferase 31 IU/L (17-59); BUN Creatinine Ratio 26.2 (6-22); Blood Urea Nitrogen 27 mg/dL (9-20); Calcium 8.8 mg/dL (8.4-10.2); Carbon Dioxide 24 mmol/L (22-32); Chloride 104 mmol/L (98-107); Estimated Glomerular Filt Rate > 60 mL/min (>60); Globulin 2.3 g/dL (1.7-4.1); Glucose 96 mg/dL (80-110); HEMOLYSIS < 15 (0-50); Magnesium 1.7 mg/dL (1.6-2.3); Phosphorous 3.6 mg/dL (2.3-3.7); Potassium 4.3 mmol/L (3.4-5.1); Sodium 136 mmol/L (137-145); Total Protein 6.3 g/dL (6.3-8.2)
[2024-11-16 09:21] LABS: Creatinine Urine Random 72.51 mg/dL; Protein (Total) Urine Random 7 mg/dL (0-12); Protein Creatinine Ratio Urine 0.09 GRAM/24H
[2024-11-17 06:05] LABS: Tacrolimus 9.1 ng/mL (5.0-20.0)
== END ==
PROVIDERS: PCP Family Medicine; Referring Provider Internal Medicine Nephrology; Visit Provider Internal Medicine Nephrology
DX: T86.90 Unspecified complication of unspecified transplanted organ and tissue (principal); Z94.0 Kidney transplant status; Z48.298 Encounter for aftercare following other organ transplant; N39.0 Urinary tract infection, site not specified; E83.40 Disorders of magnesium metabolism, unspecified
CPT/HCPCS: 36415; 80053; 80197; 81001; 82570; 83735; 84100; 84156; 85025

== ENCOUNTER → 2024-11-23 09:06 | Outpatient (CLI) | payer MEDICARE, OTHER, SELFPAY ==
[2021-05-08 11:15] VITALS: BMI 28.8
[2024-11-23 09:43] LABS: Add Manual Diff / Slide Review NO; Basophils Absolute Auto 0 /uL (0-100); Basophils Percent Auto 0.5 % (0-2); Eosinophils Absolute Auto 100 /uL (0-450); Eosinophils Percent Auto 2.3 % (2-4); Hematocrit 39.4 % (41-53); Hemoglobin 13.1 g/dL (13.5-17.5); Lymphocytes Absolute Auto 800 /uL (1100-4500); Lymphocytes Percent Auto 19.8 % (25-40); Mean Corpuscular HGB Conc 33.2 % (30-36); Mean Corpuscular Hemoglobin 33.2 PG (26-34); Mean Corpuscular Volume 100.1 fL (80-100); Monocytes Absolute Auto 500 /uL (0-900); Monocytes Percent Auto 12.8 % (3-14); Neutrophils Absolute Auto 2700 /uL (1500-7000); Neutrophils Percent Auto 64.6 % (50-75); Platelet Count 187 X10^3/uL (150-400); Red Blood Cell Count 3.93 X10^6/uL (4.5-5.9); Red Cell Distribution Width 14.3 % (11.6-14.8); White Blood Cell Count 4.1 X10^3/uL (4.5-11.0)
[2024-11-23 10:05] LABS: Appearance Urine UA CLEAR; Bilirubin Urine UA NEGATIVE (NEGATIVE); Color Urine UA YELLOW; Glucose Urine UA NEGATIVE (Negative); Ketones Urine UA NEGATIVE (NEGATIVE); Leukocyte Esterase Urine UA NEGATIVE (NEGATIVE); Nitrite Urine UA NEGATIVE (Negative); Occult Blood Urine UA NEGATIVE (Negative); Protein Urine UA NEGATIVE (Negative); Specific Gravity Urine UA 1.015 (1.000-1.035); Urobilinogen Urine UA 0.2 E.U./dL (0.2); pH Urine UA 6.5 (4.5-8.0)
[2024-11-23 10:25] LABS: Bacteria Urine None Seen; Culture Indicated Urine Cult Not Indicated; RBC Urine None Seen (0-5/HPF); Squamous Epithelial Cell Urine 0-1 /HPF (0-5/HPF); Urine Volume 10mL (spun); WBC Urine 0-1/HPF (0-5/HPF)
[2024-11-23 10:40] LABS: Creatinine Urine Random 87.26 mg/dL; Protein (Total) Urine Random 7 mg/dL (0-12); Protein Creatinine Ratio Urine 0.08 GRAM/24H
[2024-11-23 10:43] LABS: Alanine Aminotransferase 29 IU/L (<50); Albumin 3.8 g/dL (3.5-5.0); Albumin Globulin Ratio 1.6 (1.0-2.8); Alkaline Phosphatase 90 U/L (38-126); Aspartate Aminotransferase 31 IU/L (17-59); BUN Creatinine Ratio 25.2 (6-22); Bilirubin Total 0.7 mg/dL (0.2-1.3); Blood Urea Nitrogen 26 mg/dL (9-20); Calcium 8.9 mg/dL (8.4-10.2); Carbon Dioxide 25 mmol/L (22-32); Chloride 105 mmol/L (98-107); Estimated Glomerular Filt Rate > 60 mL/min (>60); Globulin 2.4 g/dL (1.7-4.1); Glucose 100 mg/dL (80-110); HEMOLYSIS < 15 (0-50); Magnesium 1.7 mg/dL (1.6-2.3); Phosphorous 3.7 mg/dL (2.3-3.7); Potassium 4.1 mmol/L (3.4-5.1); Sodium 137 mmol/L (137-145); Total Protein 6.2 g/dL (6.3-8.2)
[2024-11-24 10:10] LABS: Tacrolimus 7.1 ng/mL (5.0-20.0)
== END ==
PROVIDERS: PCP Family Medicine; Referring Provider Internal Medicine Nephrology; Visit Provider Internal Medicine Nephrology
DX: Z48.298 Encounter for aftercare following other organ transplant (principal); T86.90 Unspecified complication of unspecified transplanted organ and tissue; E83.40 Disorders of magnesium metabolism, unspecified; Z94.0 Kidney transplant status
CPT/HCPCS: 36415; 80053; 80197; 81001; 82570; 83735; 84100; 84156; 85025

== ENCOUNTER 2025-01-13 12:06 | Emergency (ER) | payer MEDICARE, OTHER, SELFPAY ==
[2021-05-08 11:15] VITALS: BMI 28.8
[2025-01-13] VITALS (24 sets, daily range): BP systolic 149–190; BP diastolic 62–123; PULSE 50–71; RESP 15–33; TEMP 36.7; O2SAT 92–100; BMI 26.6
--- NOTE | 2025-01-13 12:30 | DI.CT.S_ITS ---
PROCEDURE: CT HEAD/BRAIN WO CON INDICATIONS: acute confusion TECHNIQUE: Noncontrast 4.5 mm thick angled axial sections acquired from the foramen magnum to the vertex, with coronal and sagittal reformats. For radiation dose reduction, the following was used: automated exposure control, adjustment of mA and/or kV according to patient size. COMPARISON: None. FINDINGS: Image quality: Diagnostic. CSF spaces: Basal cisterns are patent. No extra-axial fluid collections. The ventricles are symmetric in size and shape. Brain: No intracranial bleeds or mass effect. There is cerebral volume loss, with resultant ventricular and sulcal prominence. There are periventricular and deep white matter chronic small vessel ischemic changes. 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 There is intracranial internal carotid artery atherosclerosis. Skull and face: Calvarium and visualized facial bones appear intact, without suspicious lesions. Sinuses: Visualized sinuses and mastoids are clear. IMPRESSION: No acute intracranial pathology. Dictated by: Yong Warren M.D. on 01/13/2025 at 13:09 Approved by: Yong Warren M.D. on 01/13/2025 at 13:12
[2025-01-13 13:09] LABS: Add Manual Diff / Slide Review NO; Basophils Absolute Auto 0 /uL (0-100); Basophils Percent Auto 0.5 % (0-2); Eosinophils Absolute Auto 0 /uL (0-450); Eosinophils Percent Auto 0.7 % (2-4); Hematocrit 34.4 % (41-53); Hemoglobin 11.9 g/dL (13.5-17.5); Lymphocytes Absolute Auto 600 /uL (1100-4500); Mean Corpuscular HGB Conc 34.6 % (30-36); Mean Corpuscular Hemoglobin 33.3 PG (26-34); Mean Corpuscular Volume 96.3 fL (80-100); Monocytes Absolute Auto 500 /uL (0-900); Monocytes Percent Auto 7.7 % (3-14); Neutrophils Absolute Auto 5000 /uL (1500-7000); Neutrophils Percent Auto 81.1 % (50-75); Platelet Count 277 X10^3/uL (150-400); Red Blood Cell Count 3.57 X10^6/uL (4.5-5.9); Red Cell Distribution Width 13.8 % (11.6-14.8); White Blood Cell Count 6.1 X10^3/uL (4.5-11.0)
[2025-01-13] MEDS: SODIUM CHLORIDE 0.9% 1,000 ML 1000 ML IV (13:16)
[2025-01-13 13:17] LABS: Alanine Aminotransferase 34 IU/L (<50); Albumin 3.7 g/dL (3.5-5.0); Albumin Globulin Ratio 1.5 (1.0-2.8); Alkaline Phosphatase 97 U/L (38-126); Aspartate Aminotransferase 31 IU/L (17-59); Bilirubin Total 0.9 mg/dL (0.2-1.3); Blood Urea Nitrogen 29 mg/dL (9-20); Calcium 8.5 mg/dL (8.4-10.2); Carbon Dioxide 23 mmol/L (22-32); Chloride 101 mmol/L (98-107); Estimated Glomerular Filt Rate > 60 mL/min (>60); Globulin 2.5 g/dL (1.7-4.1); Glucose 137 mg/dL (70-99); HEMOLYSIS < 15 (0-50); Magnesium 1.8 mg/dL (1.6-2.3); Potassium 4.2 mmol/L (3.4-5.1); Sodium 132 mmol/L (137-145); Total Protein 6.2 g/dL (6.3-8.2)
[2025-01-13 13:18] LABS: Lactate (Lactic Acid) 1.5 mmol/L (0.7-2.1)
[2025-01-13 15:38] LABS: Appearance Urine UA CLEAR; Bilirubin Urine UA NEGATIVE (NEGATIVE); Color Urine UA YELLOW; Glucose Urine UA NEGATIVE (Negative); Ketones Urine UA NEGATIVE (NEGATIVE); Leukocyte Esterase Urine UA NEGATIVE (NEGATIVE); Nitrite Urine UA NEGATIVE (Negative); Occult Blood Urine UA NEGATIVE (Negative); Protein Urine UA NEGATIVE (Negative); Urobilinogen Urine UA 0.2 E.U./dL (0.2); pH Urine UA 6.5 (4.5-8.0)
[2025-01-13 15:46] LABS: Bacteria Urine Occasional (0-1); Culture Indicated Urine Cult Not Indicated; RBC Urine 1-5/HPF (0-5/HPF); Squamous Epithelial Cell Urine 1-5 /HPF (0-5/HPF); Urine Volume 10mL (spun); WBC Urine 1-5/HPF (0-5/HPF)
--- NOTE | 2025-01-13 16:44 | ED.RECABL ---
HPI - Recheck/Abnormal Lab/Rx General Chief Complaint: Recheck/Abnormal Lab/Rx Stated Complaint: kindey infection x 1 week, weakness x 3days Time Seen by Provider: 01/13/25 12:27 History of Present Illness HPI narrative: 89-year-old gentleman who is post kidney transplant February of 2024 followed by the [facility] recently treated for urinary tract infection at the [facility], completed 14 days of ertapenem treatment for same with last dose of IV ertapenem today. From the infusion center they contacted the [facility] with concerns for increasing fatigue blurry vision, eye flashes increasing confusion his daughter states that he did not know where he was, was walking into the wall walk rather than appropriately able to find his bedroom. No localizing neurologic findings to suggest an acute stroke. No current fevers or chills. The confusion has been increasing over the last couple of days. Related Data Home Medications Medication Instructions Recorded Confirmed amlodipine 5 mg tablet 5 mg PO DAILY 11/15/24 11/15/24 calcium 315 mg (as 1 tab PO BID 11/15/24 11/15/24 citrate)-vitamin D3 5 mcg (200 unit) tablet colloidal oatmeal 2 % topical 1 ea topical DAILY PRN 11/15/24 11/15/24 cleanser (Eucerin Baby Eczema Relief) hydrocortisone 1 % topical cream 1 applic topical BID PRN 11/15/24 11/15/24 magnesium oxide 400 mg PO BID 11/15/24 11/15/24 melatonin 3 mg capsule 3 mg PO BEDTIME PRN 11/15/24 11/15/24 multivitamin with minerals-folic 1 tab PO DAILY 11/15/24 11/15/24 acid 0.4 mg tablet (One-A-Day Women's 50 Plus) mycophenolate sodium 180 mg 180 mg PO BID 11/15/24 11/15/24 tablet,delayed release prednisone 5 mg tablet 5 mg PO DAILY 11/15/24 11/15/24 simvastatin 20 mg tablet 20 mg PO DAILY 11/15/24 11/15/24 tacrolimus 1 mg capsule, 1 mg PO .COMPLEX 11/15/24 11/15/24 immediate-release Previous Rx's Medication Instructions Recorded DISABLED PARKING PERMIT #1 ea 01/01/24 cetirizine 10 mg tablet 10 mg PO BEDTIME #30 tabs 01/02/24 fluticasone propionate 50 1 spray intranasal DAILY PRN 01/02/24 mcg/actuation nasal allergy symptoms #16 grams spray,suspension tamsulosin 0.4 mg capsule 0.8 mg (2 x 0.4 mg) PO DAILY #180 12/21/24 caps Allergies Allergy/AdvReac Type Severity Reaction Status Date / Time ceftazidime Allergy Severe infection, Verified 01/13/25 12:34 burning rash Review of Systems Review of Systems Narrative: Pertinent positive and negative findings as per HPI Patient History Medical History Screening for colon cancer Hospital discharge follow-up Cellulitis (~09/2016) Pancreatitis (~2010) Enlarged prostate Former smoker HLD (hyperlipidemia) HTN (hypertension) MRSA (methicillin resistant Staphylococcus aureus) (~2005) Osteomyelitis (~2012) Kidney failure (~2010) Osteomyelitis of lumbar spine Surgical History History of total left hip arthroplasty History of lumbar spinal fusion History of hip replacement (12/17/16) Status post colonoscopy Status post cholecystectomy Social History household members: family Smoking Status: Former smoker alcohol intake: current substance use type: does not use Smoking Status: Former smoker alcohol intake frequency: a few times a week Exam Initial Vital Signs Initial Vital Signs: Vital Signs Temperature 98.0 F 01/13/25 12:28 Pulse Rate 54 L 01/13/25 12:28 Respiratory Rate 18 01/13/25 12:28 Blood Pressure 177/65 H 01/13/25 12:28 Pulse Oximetry 98 01/13/25 12:28 Oxygen Delivery Method Room Air 01/13/25 12:28 General: appears fatigued, chronically ill-appearing slightly confused but no acute distress HEENT: Moist mucous membranes, normal sclera with reactive pupils, Respiratory: Lungs are clear to auscultation, no wheezing no rales no rhonchi. Full and symmetrical air movement Cardiac: Regular rate and rhythm no murmurs no bruits Abdomen: Soft, nontender, no rebound or guarding, no flank pain, no tenderness over the transplant kidney in the right lower quadrant Skin: Warm and dry, no rashes Neurologic: globally weak but otherwise Grossly neurologically intact with no obvious asymmetries or abnormalities Extremities: No trauma, no lower extremity edema Psych: Cooperative, slightly confused Course Orders Ordered: ED Orders 01/13/25 12:30 CT head/brain wo con Stat 01/13/25 12:55 Complete Blood Count AUTO DIFF Stat Comprehensive Metabolic Panel Stat Lactate (Lactic Acid) Stat Magnesium Stat 01/13/25 12:57 Blood Culture Stat 01/13/25 15:30 Urinalysis and Microscopic Stat Discontinued Medications Acetaminophen (Acetaminophen 325 Mg Tablet) 975 mg PO NOW ONE Stop: 01/13/25 17:05 Last Admin: 01/13/25 17:26 Dose: 975 mg Documented By: JOSE M Sodium Chloride (Normal Saline 0.9%) 1,000 mls @ 1,000 mls/hr IV BOLUS ONE Stop: 01/13/25 13:28 Last Infusion: 01/13/25 14:37 Dose: Infused Documented By: JOSE M Admin: 01/13/25 13:16 Dose: 1,000 mls/hr Documented By: JOSE M Vital Signs Vital signs: Vital Signs - 8 hr 01/13/25 12:28 01/13/25 12:43 01/13/25 12:44 Temperature 98.0 F Pulse Rate 54 L 52 L 51 L Respiratory Rate 18 Blood Pressure 177/65 H Pulse Oximetry 98 97 99 Oxygen Delivery Method Room Air 01/13/25 12:44 01/13/25 13:00 01/13/25 13:20 Temperature Pulse Rate 52 L Respiratory Rate 24 Blood Pressure 149/69 H 190/79 H Pulse Oximetry 98 Oxygen Delivery Method 01/13/25 13:20 01/13/25 13:30 01/13/25 13:30 Temperature Pulse Rate 50 L 55 L Respiratory Rate 22 18 Blood Pressure 187/70 H Pulse Oximetry 99 100 Oxygen Delivery Method 01/13/25 14:00 01/13/25 14:01 01/13/25 14:01 Temperature Pulse Rate 56 L 62 Respiratory Rate 21 33 H Blood Pressure 175/73 H Pulse Oximetry 98 98 Oxygen Delivery Method 01/13/25 14:30 01/13/25 14:31 01/13/25 14:31 Temperature Pulse Rate 66 65 Respiratory Rate 30 H 22 Blood Pressure 153/123 H Pulse Oximetry 95 98 Oxygen Delivery Method 01/13/25 15:00 01/13/25 15:01 01/13/25 15:01 Temperature Pulse Rate 56 L 57 L Respiratory Rate 21 22 Blood Pressure 162/67 H Pulse Oximetry 96 96 Oxygen Delivery Method 01/13/25 15:26 01/13/25 15:26 01/13/25 15:30 Temperature Pulse Rate 59 L Respiratory Rate 15 Blood Pressure 163/69 H 165/70 H Pulse Oximetry 99 Oxygen Delivery Method 01/13/25 15:30 01/13/25 16:00 01/13/25 16:00 Temperature Pulse Rate 59 L 57 L Respiratory Rate 23 21 Blood Pressure 161/109 H Pulse Oximetry 99 96 Oxygen Delivery Method 01/13/25 16:30 01/13/25 16:30 01/13/25 17:00 Temperature Pulse Rate 60 Respiratory Rate 23 Blood Pressure 174/64 H 175/68 H Pulse Oximetry 95 Oxygen Delivery Method 01/13/25 17:00 01/13/25 17:30 01/13/25 17:31 Temperature Pulse Rate 58 L 63 Respiratory Rate 22 Blood Pressure 152/62 H Pulse Oximetry 97 94 Oxygen Delivery Method 01/13/25 17:31 01/13/25 18:00 01/13/25 18:00 Temperature Pulse Rate 61 55 L Respiratory Rate 16 Blood Pressure 176/73 H Pulse Oximetry 95 94 Oxygen Delivery Method 01/13/25 18:30 Temperature Pulse Rate 60 Respiratory Rate 20 Blood Pressure Pulse Oximetry 98 Oxygen Delivery Method MDM - Recheck/Abnormal Lab/Rx Lab Data 01/13/25 12:55 01/13/25 12:55 Labs: Lab Results 01/13/25 01/13/25 Range/Units 12:55 15:30 WBC 6.1 (4.5-11.0) X10^3/uL RBC 3.57 L (4.5-5.9) X10^6/uL Hgb 11.9 L (13.5-17.5) g/dL Hct 34.4 L (41-53) % MCV 96.3 (80-100) fL MCH 33.3 (26-34) PG MCHC 34.6 (30-36) % RDW 13.8 (11.6-14.8) % Plt Count 277 (150-400) X10^3/uL Neut % (Auto) 81.1 H (50-75) % Lymph % (Auto) 10.0 L (25-40) % [place] % (Auto) 7.7 (3-14) % Eos % (Auto) 0.7 L (2-4) % Baso % (Auto) 0.5 (0-2) % Neut # (Auto) 5000 (6309-8402) /uL Lymph # (Auto) 600 L (2274-4472) /uL [place] # (Auto) 500 (0-900) /uL Eos # (Auto) 0 (0-450) /uL Baso # (Auto) 0 (0-100) /uL Sodium 132 L (137-145) mmol/L Potassium 4.2 (3.4-5.1) mmol/L Chloride 101 (98-107) mmol/L Carbon Dioxide 23 (22-32) mmol/L BUN 29 H (9-20) mg/dL Creatinine 0.88 (0.66-1.25) mg/dL Estimated GFR > 60 (>60) mL/min BUN/Creatinine Ratio 33.0 H (6-22) Glucose 137 H (70-99) mg/dL Lactate 1.5 (0.7-2.1) mmol/L Calcium 8.5 (8.4-10.2) mg/dL Magnesium 1.8 (1.6-2.3) mg/dL Total Bilirubin 0.9 (0.2-1.3) mg/dL AST 31 (17-59) IU/L ALT 34 (<50) IU/L Alkaline Phosphatase 97 (38-126) U/L Total Protein 6.2 L (6.3-8.2) g/dL Albumin 3.7 (3.5-5.0) g/dL Globulin 2.5 (1.7-4.1) g/dL Albumin/Globulin Ratio 1.5 (1.0-2.8) Urine Color Yellow Urine Appearance Clear Urine pH 6.5 (4.5-8.0) Ur Specific [place] 1.020 (1.000-1.035) Urine Protein Negative (Negative) Urine Glucose (UA) Negative (Negative) g/dL Urine Ketones Negative (NEGATIVE) Urine Occult Blood Negative (Negative) Urine Nitrate Negative (Negative) Urine Bilirubin Negative (NEGATIVE) Urine Urobilinogen 0.2 (0.2) E.U./dL Ur Leukocyte Esterase Negative (NEGATIVE) Urine RBC 1-5/hpf (0-5/HPF) Urine WBC 1-5/hpf (0-5/HPF) Ur Squamous Epith Cells 1-5 /hpf (0-5/HPF) Urine Bacteria Occasional (0-1) (None) Ur Culture Indicated? Cult not indicated Vol Urine Centrifuged 10ml (spun) MDM Narrative Medical decision making narrative: CC:confusion Complicating co-morbidities:Renal transplant, just completed day 14 of ertapenem for urinary tract infection Data collected from: patient, [facility] renal transplant team calling with details prior to arrival Medical records reviewed: per communication prior to arrival, kidney transplant 724, recently discharged from [facility] with urinary tract infection, today finished his 14th day of ertapenem at the infusion Clinic here at [facility]. Increasing confusion uncertain etiology Differential considered: side effects from ertapenem, sepsis, transplant complications Exam documented above, pertinent findings include: slightly confused, appears fatigued, no acute distress no obvious pain or tenderness lungs are clear Lab Test results independently reviewed as above. Pertinent findings: CBC is unremarkable, no significant leukocytosis, chronic anemia is stable chemistries are reassuring including a creatinine 0.88 are normal potassium urine does not suggest infection Imaging studies: CT scan of the head is unremarkable Consultations:Dr Galvan, Sales Office Administrator [facility] Treatments: 1 L of fluid, Tylenol for headache Discussion: 89-year-old gentleman with increasing confusion over the last 48 hours after recent discharge from [facility] for treatment of complicated urinary tract infection post renal transplant. He is now completing 14 days of ertapenem. In the number of hours that he has been in the emergency department he actually is becoming more alert. Labs including imaging studies are actually quite reassuring. No evidence of continued urinary tract symptoms, sepsis, renal failure, liver failure, significant electrolyte abnormalities and CT scan is unremarkable. At this point I am wondering if his symptoms are related to simply side effects of ertapenem and we will begin to improve the further out from his last dose he gets. findings reviewed witholley Galvan who had also been thinking that his symptoms were likely related to ertapenem. she agrees with current plan with discharge home no additional medications, follow up has been scheduled, we will go ahead and pull PICC line as had been anticipated prior to his emergency evaluation. He is safe for discharge home Discharge Plan Departure Patient Disposition: Home Clinical Impression: Renal transplant recipient Altered mental status Qualifiers: Altered mental status type: unspecified Qualified Code(s): R41.82 - Altered mental status, unspecified Urinary tract infection Qualifiers: Urinary tract infection type: site unspecified Hematuria presence: without hematuria Qualified Code(s): N39.0 - Urinary tract infection, site not specified Activity Restrictions/Additional Instructions: thank you for coming in today I suspect that the confusion that you and your family has been noticing is actually a side effect of the very powerful antibiotic that you have been on. Fortunately, today is the last day of the antibiotics. Your lab work is very reassuring with no signs of worsening renal function, overall infection and your urine seems to be entirely back to normal. The CT scan that we did of your head does not show any acute findings, I am not seeing signs of stroke or other abnormalities in your brain. I spoke with Dr Galvan, primary care provider at the [facility]. I recommended taking out your PICC line in the allowing you to go home. She agrees with this recommendation. Please continue all of your usual medications and all of your schedule follow up appointments after your discharge from the hospital at the [facility] for your recent urinary tract infection If you find that you are getting worse or develop any new symptoms, please feel free to return to the emergency department for further evaluation. Prescriptions: No Action fluticasone propionate 50 mcg/actuation spray,suspension 1 spray intranasal DAILY PRN (Reason: allergy symptoms) Qty: 16 0RF Rx Instructions: administer into each nostril cetirizine 10 mg tablet 10 mg PO BEDTIME Qty: 30 0RF (DME) DISABLED PARKING PERMIT See Rx Instructions .ROUTE .MEDSUPPLY Qty: 1 0RF Rx Instructions: I FIND THIS PATIENT TO BE MEDICALLY DISABLED AND QUALIFIED FOR DISABLE PARKING INDICATED, AND SIGNED ON THE ACCOMPANYING [employer] APPLICATION FOR INDIVIDUALS tamsulosin 0.4 mg capsule 0.8 mg PO DAILY Qty: 180 2RF Eucerin Baby Eczema Relief 2 % cleanser 1 ea topical DAILY PRN amlodipine 5 mg tablet 5 mg PO DAILY simvastatin 20 mg tablet 20 mg PO DAILY mycophenolate sodium 180 mg tablet,delayed release (DR/EC) 180 mg PO BID prednisone 5 mg tablet 5 mg PO DAILY calcium citrate-vitamin D3 315 mg-5 mcg (200 unit) tablet 1 tab PO BID magnesium oxide 400 mg magnesium tablet 400 mg PO BID multivit with min-folic acid [One-A-Day Women's 50 Plus] 0.4 mg tablet 1 tab PO DAILY melatonin 3 mg capsule 3 mg PO BEDTIME PRN hydrocortisone 1 % cream 1 applic topical BID PRN tacrolimus 1 mg capsule 1 mg PO .COMPLEX Rx Instructions: 1.5 mg in am;2 mg in pm Referrals: Iliana Petty DO [Primary Care Provider] - Stand Alone Forms: Patient Portal/API/Survey
[2025-01-13] MEDS: ACETAMINOPHEN 325 MG TABLET 975 MG PO (17:26)
--- NOTE | 2025-01-13 19:04 | PC.NURSE ---
Addendum entered by Juanita Tan R.N. 01/13/25 19:06: Dressing placed. Original Note: PICC line removed w/o complication. 43 centimeters noted on PICC line. VSS. Pt reports no issues.
== END 2025-01-13 19:32 | disposition home or self-care (01) ==
PROVIDERS: Emergency Provider Emergency Medicine; PCP Family Medicine
DX: R41.82 Altered mental status, unspecified (principal); N39.0 Urinary tract infection, site not specified; Z94.0 Kidney transplant status
CPT/HCPCS: 36415; 70450; 80053; 81001; 83605; 83735; 85025; 87040; 96360; 96365; 99284; J1335; J1642